=== PATIENT | female | born 1965 | race Caucasian/White ===

== ENCOUNTER → 2016-12-28 | Outpatient (CLI) | payer BC ==
[~2016-12-28] MED LIST: AMT25 PO; FRC PO; IBUP-1050 PO; KETO10TA PO; MULT-506 PO; RIZA10TA18 PO; TOPI200T14 PO; TRIA0.1C20; XNX25 PO
--- NOTE | 2016-12-28 14:50 | DIAGNOSTIC IMAGING REPORT ---
MRI LUMBAR SPINE W/O CONTRAST CLINICAL HISTORY: Low back pain and left leg radiculopathy. TECHNIQUE: Sagittal and axial T1, T2 and STIR images were obtained. COMPARISON STUDY: No previous studies for comparison. OBSERVATIONS: There is a small focal fatty rest/hemangioma the L1 level. There are no areas of marrow replacement viewed as suspicious for metastatic disease. L1-2: No disc protrusions or extrusions. No evidence of spinal canal or neural foraminal compromise. L2-3: No disc protrusions or extrusions. No evidence of spinal canal or neural foraminal compromise. L3-4: No disc protrusions or extrusions. No evidence of spinal canal or neural foraminal compromise. L4-5: There is a tiny right paracentral disc protrusion. There is minimal deformity of thecal sac. There is no foraminal narrowing L5-S1: There is a tiny broad-based central disc protrusion. There is no significant spinal or foraminal stenosis. There is facet joint arthropathy. There is a subcentimeter fluid collection posterior medial to the left facet. There is suspected right-sided L5 spondylolysis. The conus medullaris and cauda equina appear normal. IMPRESSION: 1. Suspected L5 spondylolysis 2. Tiny right paracentral disc protrusions the L4-5 level. 3. Tiny broad-based central disc protrusion at the L5-S1 level. Electronically signed by: Vel Marie M.D. 12/28/2016 2:49 PM Dictated Date/Time: 12/28/2016 2:44 PM
--- NOTE | 2016-12-28 15:31 | DIAGNOSTIC IMAGING REPORT ---
MRI OF THE CERVICAL SPINE WITHOUT IV CONTRAST CLINICAL HISTORY: Cervical radiculopathy. COMPARISON STUDY: MRI of the cervical spine dated 10/08/2015. TECHNIQUE: MRI of the cervical spine is performed utilizing various T1 and T2-weighted sequences in the axial and sagittal planes. IV contrast was not administered for this examination. FINDINGS: Cervical spine: Vertebral body height and alignment are maintained throughout the cervical spine. Normal marrow signal intensity is preserved throughout the visualized bony structures. The atlantodental articulation appears maintained. The spinous processes are intact. Intervertebral discs: There is minimal degenerative disc desiccation. The disc spaces are preserved. Cervical spine: The cervical spinal cord is normal in morphology and signal intensity. C2-C3: Unremarkable. C3-C4: A small posterior disc osteophytic complex effaces the ventral subarachnoid space. The neural foramina appear clear. C4-C5: Mild facet arthropathy is of no consequence. The central canal and neural foramina are widely patent. C5-C6: A posterior disc osteophyte complex effaces the ventral subarachnoid space. Prominent facet arthropathy causes mild left greater than right neural foraminal stenosis. C6-C7: A tiny posterior disc osteophyte complex is of no consequence. The neural foramina are widely patent. C7-T1: Unremarkable. Soft tissues: The prevertebral and paraspinous soft tissues are within normal limits. Brain parenchyma: Partially imaged brain parenchyma at the skull base is within normal limits. IMPRESSION: 1. Minimal spondylotic change as above. There is no disc herniation or central canal stenosis, and there has been no significant change from 10/08/2015. 2. The cervical spinal cord is normal in morphology and signal intensity. Dictated: 12/28/2016 3:22 PM Transcribed: 12/28/2016 3:31 PM Leidy Electronically signed by: Kevin Brar M.D. 12/28/2016 3:35 PM Dictated Date/Time: 12/28/2016 3:22 PM
== END | disposition home or self-care (01) ==
LOC: C.MRI 13:43
PROVIDERS: ATTEND Psychiatry & Neurology Neurology
DX: M54.12 Radiculopathy, cervical region (principal); M54.16 Radiculopathy, lumbar region

== ENCOUNTER 2025-03-30 19:26 | Inpatient (IN) ==
[2025-03-30 19:47] LABS: Hematocrit (blood only) 43.4 % (37.0-47.0); Hemoglobin 15.3 g/dl (12.0-16.0); Mean Corpuscular Hemoglobin 32.3 pg (25.0-34.0); Mean Corpuscular Volume 91.6 fL (80.0-100.0); Platelet Count 372 K/uL (130-400); RDW Standard Deviation 40.6 fL (36.4-46.3); Red Blood Count 4.74 M/uL (4.20-5.40); White Blood Count 24.02 K/ul (4.8-10.8)
[2025-03-30 20:02] LABS: Pregnancy Test, Serum Negative (Negative)
[2025-03-30 20:04] LABS: Immature Granulocytes # (auto) 0.12 K/uL (0.01-0.20); Immature Granulocytes % (auto) 0.5 %
[2025-03-30 20:05] LABS: Alanine Aminotransferase 18.0 U/L (7-52); Albumin Globulin Ratio 1.6 (0.9-2); Alkaline Phosphatase 93.0 U/L (34-104); Anion Gap 13.0 (3-11); Bilirubin,Total 0.5 mg/dl (0.2-1.0); Blood Urea Nitrogen 15.0 mg/dl (6-23); Calcium 10.0 mg/dl (8.6-10.3); Carbon Dioxide 25.0 mmol/L (21-32); Chloride 97.0 mmol/L (98-107); Creatinine Clr Calc Pharmacy 70.5 ml/min; Globulin 3.2 gm/dl (2.5-4.0); Glucose 154.0 mg/dl (70-99(Fasting)); Lipase 13.0 U/L (11-82); Potassium 4.5 mmol/L (3.5-5.1); Sodium 135.0 mmol/L (136-145); Total Protein 8.4 gm/dl (6.0-8.3)
[2025-03-30 20:15] LABS: Appearance Urine Clear (Clear); Bacteria Urine Automated None Seen (None Seen); Epithelial Cell Urine Auto 0-2 /hpf (0-2); Glucose Urine UA 1+ (Negative); WBC Urine Automated 0-5 /hpf (0-5)
[2025-03-30] MEDS: SODIUM CHLORIDE 0.9% 1,000 ML IV ONE ×2 (20:25→22:19)
[2025-03-30] MEDS: ONDANSETRON INJ 2 MG/ML 2 ML VIAL IV STA (20:25)
--- NOTE | 2025-03-30 20:33 | Emergency Department Note ---
Impression & Plan Nausea, vomiting, and diarrhea, Acute dehydration, Leukocytosis, Elevated lactic acid level, SIRS (systemic inflammatory response syndrome) ED Provider Note HISTORY OF PRESENT ILLNESS: Patient is a 60-year-old female presenting with vomiting. Patient reports that yesterday she had multiple episodes of diarrhea. She states that her diarrhea stopped today, but she woke up this morning at 7 AM and started vomiting. Reports multiple episodes of vomiting. She does report some reflux-like pain in her epigastric region. Reports an abdominal surgical history significant for a cholecystectomy. Denies any fevers. Denies any recent sick contact exposures. Reports that she has vomited throughout the day today and has been unable to tolerate oral intake. Denies any dysuria or hematuria. Denies any chest pain or shortness of breath. ROS: as above PHYSICAL EXAM: Constitutional: Patient appears in no acute distress. HENT: Head: Normocephalic and atraumatic. Eyes: EOMI, PERRL Mouth/Throat: Mucous membranes moist. Neck: Trachea midline. Neck supple. Cardiovascular: RRR, No murmurs, rubs or gallops. Intact distal pulses. Pulmonary/Chest: No respiratory distress. Breath sounds clear and equal bilaterally. No wheezes or rales. Abdominal: Abdomen soft, no tenderness, rebound or guarding. No reproducible abdominal pain Musculoskeletal: No edema, tenderness or deformity noted. Skin: Warm and dry. No rash, erythema, pallor or cyanosis Psychiatric: Appropriate mood and affect for situation. Neurological: Alert and keenly responsive. CN II-XII grossly intact, moving all extremities equally and fully. MDM: - Vitals signs showed hypertension - History obtained via patient. History as above. - Chronic conditions affecting care: HLD; depression/anxiety - Differential diagnoses include, but are not limited to: dehydration; electrolyte abnormality; choledocholithiasis; appendicitis; bowel obstruction; colitis - Order placed for continuous cardiac monitoring. At this time, monitor showed rate of 86 bpm with normal sinus rhythm, per my interpretation. - External medical records reviewed. Rheumatology visit note dated 02/24/2025 was reviewed. Patient follows in the clinic secondary to a positive JAKE and is having further workup for this. - Laboratory workup interpreted by myself showed leukocytosis (WBC 24.02) with neutrophil predominant slight hyponatremia (Na 135); elevated anion gap (13) with elevated glucose (154); normal AST/ALT normal lipase; negative hCG - Elevated lactate (3.2) - UA negative for infection. Noted to have trace ketones and blood. - Patient given 1L NS and 4 mg IV zofran. However, patient complaining of discomfort and further nausea while awaiting CT scan. Given 5 mg IV compazine and 50 mcg IV fentanyl. Given 20 mg IV pepcid. - CT abdomen/pelvis with IV contrast negative for acute pathology. No findings to suggest acute appendicitis. Noted to have postop changes from a prior cholecystectomy but no ductal dilatation. - On reassessment, patient reports feeling significantly improved. She was given a second liter normal saline for elevated lactic acid level. I did discuss with the patient that I thought that her leukocytosis was likely reactive and her elevated lactic acid level was secondary to her dehydration from her vomiting and diarrhea. She was agreeable to a repeat lactic acid after second liter of fluid. However, repeat lactic acid level still elevated at 3.5. Procalcitonin and blood cultures were added the patient's workup. - Patient's sepsis fluid volume calculation based on actual body weight is 1773.00 mL. - Lyme, Anaplasmosis and babesia also added to workup. - Discussion was had with case coordinator about patient's case and need for admission - Hospitalist, Dr. Hamilton, consulted for admission - Patient admitted to [facility] service for further evaluation and management. ASSESSMENT AND PLAN: Diagnosis: nausea, vomiting and diarrhea; elevated lactic acid level; leukocytosis; SIRS Plan: admit Past Med/Surg History Problem List (Updated 03/30/25 @ 23:16 by Alicia Zeng MD) SIRS (systemic inflammatory response syndrome) (Acute) Elevated lactic acid level (Acute) Leukocytosis (Acute) Acute dehydration (Acute) Nausea, vomiting, and diarrhea (Acute) Anxiety Migraine with aura Positive JAKE (antinuclear antibody) Neck pain (Chronic) Left-sided trigeminal neuralgia (Chronic) Left lumbar radiculopathy (Chronic) Hyperlipidemia with target LDL less than 100 (Chronic) Depression with anxiety (Chronic) Cervical radiculopathy (Chronic) Carpal tunnel syndrome of right wrist (Chronic) 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) Arthralgia of multiple sites (Chronic) Chronic pain (Acute) Vision abnormalities Lower back pain Bilateral lumbar radiculopathy Bursitis Gluteus minimus/medius Bilateral piriformis syndrome Sacroiliac joint pain Cervical facet joint syndrome Medical History (Updated 03/30/25 @ 23:16 by Alicia Zeng MD) Hyperlipidemia Surgical History (Updated 05/30/24 @ 08:16 by Adams Fontaine DO) Deviated septum Hx of tonsillectomy S/P cervical spinal fusion C2-C3 H/O: hysterectomy S/P shoulder surgery S/P cholecystectomy Family History Son Diabetes Family/Other Diabetes Cancer Grandmother Cancer Father Hypertension Daughter Migraine headache Other Gallbladder disease Social History (Updated 05/30/24 @ 08:16 by Adams Fontaine DO) Smoking Status: Never smoker Hx Alcohol Use: Yes (Rare) Alcohol type: wine Hx Substance Use: Yes Prescribed Medications: Marijuana Preferred Language: Yoruba Communication Ability: Effective Visual Impairment: No Limitations Hearing Ability: Normal Beliefs That Will Affect Care: None marital status: Current Living Situation: Spouse and Family current occupational status: employed current occupation: owns a [employer] company Feels Safe at Home: Yes Allergies Allergies Allergy/AdvReac Type Severity Reaction Status Date / Time Penicillins Allergy Mild Rash/hives/throat Verified 03/30/25 20:08 swelling latex Allergy Unknown SCABS, Verified 03/30/25 20:08 ITCHY, SORE walnut Allergy swelling Verified 03/30/25 20:08 in throat baclofen AdvReac Severe Confusion Verified 03/30/25 20:08 bacitracin AdvReac Intermediate blisters Verified 03/30/25 20:08 onabotulinumtoxinA AdvReac muscle Verified 03/30/25 20:08 [From Botox] tightness in neck COVALT Allergy Unknown . Uncoded 03/30/25 20:08 Home Meds Home Medications Medication Instructions Recorded Confirmed acyclovir 5 % topical ointment 1 applic topical DIRECTED 07/04/18 03/30/25 valacyclovir 500 mg tablet 500 mg PO TID PRN Recurrent Episode 07/04/18 03/30/25 (Valtrex) acetaminophen 650 mg 650 mg PO Q8H PRN Pain 02/08/22 03/30/25 tablet,extended release (Tylenol Arthritis Pain) docusate sodium 100 mg capsule 100 mg PO BID 02/08/22 03/30/25 (Colace) furosemide 40 mg tablet (Lasix) 40 mg PO DAILY PRN swelling 05/30/24 03/30/25 ondansetron HCl 4 mg tablet 4 mg PO Q8H PRN Nausea 05/30/24 03/30/25 rosuvastatin 10 mg tablet 10 mg PO DAILY 05/30/24 03/30/25 albuterol sulfate 90 mcg/actuation 1 puff inhalation Q4H PRN 03/30/25 03/30/25 aerosol inhaler Shortness Of Breath Or Wheezing duloxetine 60 mg capsule,delayed 60 mg PO QAM 03/30/25 03/30/25 release (Cymbalta) famotidine 20 mg tablet 20 mg PO DAILY 03/30/25 03/30/25 fluticasone propionate 50 1 spray intranasal DAILY 03/30/25 03/30/25 mcg/actuation nasal spray,suspension omeprazole 40 mg capsule,delayed 40 mg PO QAM 03/30/25 03/30/25 release Previous Rx's Medication Instructions Recorded indomethacin 75 mg 75 mg PO BID 90 days #180 caps 05/01/24 capsule,extended release alprazolam 0.5 mg tablet 0.5 mg PO DAILY PRN anxiety #90 07/01/24 tabs ketorolac 10 mg tablet 10 mg PO DAILY PRN Pain 30 days 07/01/24 #12 tabs ondansetron 4 mg disintegrating 4 mg PO Q6H PRN nausea and 03/30/25 tablet vomiting #14 tabs Results & Data (ED) Vital Signs Vital Signs - 24 hr 03/30/25 19:29 03/30/25 21:07 03/30/25 21:31 Temperature 36.7 C Temperature Source Oral Pulse Rate 83 67 Pulse Rate [Apical] 86 Respiratory Rate 16 17 Respiratory Effort / Characteristics Non-Labored Spontaneous Non-Labored Spontaneous Respiratory Depth Normal Normal Respiratory Pattern Regular Regular Blood Pressure 167/85 H Blood Pressure [Left Arm] 146/99 H Blood Pressure Mean 112 Blood Pressure Mean [Left Arm] 114 Pulse Oximetry 98 98 Oxygen Delivery Method Room Air Room Air Sepsis Recent Fever Within 48 Hours No Sepsis New/Unexplained Change in Mental Status N/A Sepsis Action Taken by Nursing No Action Required 03/30/25 23:00 Temperature Temperature Source Pulse Rate Pulse Rate [Apical] Respiratory Rate Respiratory Effort / Characteristics Non-Labored Respiratory Depth Normal Respiratory Pattern Blood Pressure Blood Pressure [Left Arm] Blood Pressure Mean Blood Pressure Mean [Left Arm] Pulse Oximetry Oxygen Delivery Method Sepsis Recent Fever Within 48 Hours Sepsis New/Unexplained Change in Mental Status Sepsis Action Taken by Nursing Laboratory Data 03/30/25 19:33 03/30/25 19:33 Lab Results 03/30/25 03/30/25 03/30/25 Range/Units 19:33 20:03 21:21 WBC 24.02 H (4.8-10.8) K/ul RBC 4.74 (4.20-5.40) M/uL Hgb 15.3 (12.0-16.0) g/dl Hct 43.4 (37.0-47.0) % MCV 91.6 (80.0-100.0) fL MCH 32.3 (25.0-34.0) pg MCHC 35.3 (32.0-36.0) g/dL RDW Std Deviation 40.6 (36.4-46.3) fL RDW Coeff of Ray 12.2 (11.5-14.5) % Plt Count 372 (130-400) K/uL MPV 8.7 L (9.4-12.4) fL Immature Gran % (Auto) 0.5 % Neut % (Auto) 88.9 % Lymph % (Auto) 5.0 % [place] % (Auto) 5.4 % Eos % (Auto) 0.0 % Baso % (Auto) 0.2 % Neut # (Auto) 21.36 H (1.40-6.50) K/uL Lymph # (Auto) 1.21 (1.20-3.40) K/uL [place] # (Auto) 1.29 H (0.11-0.59) K/uL Eos # (Auto) 0.00 (0.00-0.50) K/uL Baso # (Auto) 0.04 (0.00-0.20) K/uL Immature Gran # (Auto) 0.12 (0.01-0.20) K/uL Sodium 135 L (136-145) mmol/L Potassium 4.5 (3.5-5.1) mmol/L Chloride 97 L (98-107) mmol/L Carbon Dioxide 25 (21-32) mmol/L Anion Gap 13 H (3-11) BUN 15 (6-23) mg/dl Creatinine 0.72 (0.6-1.2) mg/dl Est Cr Clr Drug Dosing 70.5 ml/min eGFR 96.86 BUN/Creatinine Ratio 20.8 H (10-20) Glucose 154 H (70-99(Fasting)) mg/dl Lactate 3.2 H* (0.4-2.0) mmol/L Calcium 10.0 (8.6-10.3) mg/dl Total Bilirubin 0.5 (0.2-1.0) mg/dl AST 35 (13-39) U/L ALT 18 (7-52) U/L Alkaline Phosphatase 93 (34-104) U/L Total Protein 8.4 H (6.0-8.3) gm/dl Albumin 5.2 H (3.4-5.0) gm/dl Globulin 3.2 (2.5-4.0) gm/dl Albumin/Globulin Ratio 1.6 (0.9-2) Lipase 13 (11-82) U/L HCG, Qual Negative (Negative) Urine Color Yellow Urine Appearance Clear (Clear) Urine pH 7.0 (4.5-7.5) Ur Specific [place] 1.026 (1.000-1.030) Urine Protein 4+ H (Negative) Urine Glucose (UA) 1+ H (Negative) Urine Ketones Trace H (Negative) Urine Blood 2+ H (Negative) Urine Nitrite Negative (Negative) Urine Bilirubin Negative (Negative) Urine Urobilinogen Negative (Negative) Ur Leukocyte Esterase Negative (Negative) Urine WBC (Auto) 0-5 (0-5) /hpf Urine RBC (Auto) 11-20 H (0-2) /hpf U Hyaline Cast (Auto) 3-5 H (0-2) /lpf U Epithel Cells (Auto) 0-2 (0-2) /hpf Urine Bacteria (Auto) None Seen (None Seen) Urine Comment 03/30/ Range/Units 22:45 WBC (4.8-10.8) K/ul RBC (4.20-5.40) M/uL Hgb (12.0-16.0) g/dl Hct (37.0-47.0) % MCV (80.0-100.0) fL MCH (25.0-34.0) pg MCHC (32.0-36.0) g/dL RDW Std Deviation (36.4-46.3) fL RDW Coeff of Ray (11.5-14.5) % Plt Count (130-400) K/uL MPV (9.4-12.4) fL Immature Gran % (Auto) % Neut % (Auto) % Lymph % (Auto) % [place] % (Auto) % Eos % (Auto) % Baso % (Auto) % Neut # (Auto) (1.40-6.50) K/uL Lymph # (Auto) (1.20-3.40) K/uL [place] # (Auto) (0.11-0.59) K/uL Eos # (Auto) (0.00-0.50) K/uL Baso # (Auto) (0.00-0.20) K/uL Immature Gran # (Auto) (0.01-0.20) K/uL Sodium (136-145) mmol/L Potassium (3.5-5.1) mmol/L Chloride (98-107) mmol/L Carbon Dioxide (21-32) mmol/L Anion Gap (3-11) BUN (6-23) mg/dl Creatinine (0.6-1.2) mg/dl Est Cr Clr Drug Dosing ml/min eGFR BUN/Creatinine Ratio (10-20) Glucose (70-99(Fasting)) mg/dl Lactate 3.5 H* (0.4-2.0) mmol/L Calcium (8.6-10.3) mg/dl Total Bilirubin (0.2-1.0) mg/dl AST (13-39) U/L ALT (7-52) U/L Alkaline Phosphatase (34-104) U/L Total Protein (6.0-8.3) gm/dl Albumin (3.4-5.0) gm/dl Globulin (2.5-4.0) gm/dl Albumin/Globulin Ratio (0.9-2) Lipase (11-82) U/L HCG, Qual (Negative) Urine Color Urine Appearance (Clear) Urine pH (4.5-7.5) Ur Specific [place] (1.000-1.030) Urine Protein (Negative) Urine Glucose (UA) (Negative) Urine Ketones (Negative) Urine Blood (Negative) Urine Nitrite (Negative) Urine Bilirubin (Negative) Urine Urobilinogen (Negative) Ur Leukocyte Esterase (Negative) Urine WBC (Auto) (0-5) /hpf Urine RBC (Auto) (0-2) /hpf U Hyaline Cast (Auto) (0-2) /lpf U Epithel Cells (Auto) (0-2) /hpf Urine Bacteria (Auto) (None Seen) Urine Comment Administered Medications Discontinued Medications Fentanyl Citrate (Fentanyl Citrate Pf 100 Mcg/2 Ml Vial) 50 mcg IV NOW STA Stop: 03/30/25 20:44 Last Admin: 03/30/25 20:57 Dose: 50 mcg Documented By: LAURA Sodium Chloride (Nss) 1,000 mls @ 999 mls/hr IV .Q1H1M ONE Stop: 03/30/25 21:22 Last Infusion: 03/30/25 21:33 Dose: Infused Documented By: Admin: 03/30/25 20:25 Dose: 999 mls/hr Documented By: LAURA Prochlorperazine (Compazine) 1 mls @ 1 mls/min IV ONE ONE Stop: 03/30/25 20:44 Last Admin: 03/30/25 20:56 Dose: 1 mls/min Documented By: LAURA Famotidine (Pepcid 20mg Iv Push) 20 mg in 5 mls @ 2.5 mls/min IV NOW STA Stop: 03/30/25 21:33 Last Admin: 03/30/25 21:46 Dose: 2.5 mls/min Documented By: LAURA Sodium Chloride (Nss) 1,000 mls @ 999 mls/hr IV .Q1H1M ONE Stop: 03/30/25 23:01 Last Admin: 03/30/25 22:19 Dose: 999 mls/hr Documented By: LAURA Ioversol (Optiray 320 100ml) 90 ml IV ONCE ONE Stop: 03/30/25 20:39 Last Admin: 03/30/25 20:39 Dose: 90 ml Documented By: ALFONZO Ondansetron HCl (Ondansetron Inj 2 Mg/Ml 2 Ml Vial) 4 mg IV NOW STA Stop: 03/30/25 20:23 Last Admin: 03/30/25 20:25 Dose: 4 mg Documented By: LAURA Imaging Data Radiologist's Impression: Abdomen/Pelvis CT 03/30/25 20:22 Exam(s): CT ABDOMEN + PELVIS With Contrast IV Amt: 90 ml optiray 320 EXAM: CT Abdomen and Pelvis With Intravenous Contrast CLINICAL HISTORY: Reason for exam: vomiting; diarrhea. TECHNIQUE: Axial computed tomography images of the abdomen and pelvis with intravenous contrast. CTDI is 21.04 mGy and DLP is 942.39 mGy-cm. Automated exposure control was utilized for the study. A dose lowering technique was utilized adhering to the principles of ALARA. CONTRAST: Patient received 90 ml optiray 320 of IV contrast COMPARISON: 07/18/2020 FINDINGS: Lung bases: Unremarkable. No mass. No consolidation. ABDOMEN: Liver: Unremarkable. No mass. Gallbladder and bile ducts: Postop changes prior cholecystectomy. No ductal dilation. Pancreas: Unremarkable. No mass. No ductal dilation. Spleen: Unremarkable. No splenomegaly. Adrenals: Unremarkable. No mass. Kidneys and ureters: Both kidneys opacify within excrete contrast in a normal symmetric fashion. Simple bilateral parapelvic renal cysts. No follow-up of these simple cysts is necessary. No hydronephrosis. Stomach and bowel: Unremarkable. No obstruction. No mucosal thickening. PELVIS: Appendix: No findings to suggest acute appendicitis. Bladder: Unremarkable. No mass. Reproductive: Unremarkable as visualized. ABDOMEN and PELVIS: Intraperitoneal space: Unremarkable. No free air. No significant fluid collection. Bones/joints: No acute fracture. No dislocation. Soft tissues: Unremarkable. Vasculature: Unremarkable. No abdominal aortic aneurysm. Lymph nodes: Unremarkable. No enlarged lymph nodes. IMPRESSION: Postop changes prior cholecystectomy Stable bilateral parapelvic renal cysts Electronically signed by: Ton Wilkins MD 03/30/25 21:37 PM Discharge Plan Visit Data Chief Complaint: Vomiting Stated Complaint: THROWING UP/CRAMPING ED Provider: Alicia Zeng Discharge Problem: Nausea, vomiting, and diarrhea, Acute dehydration, Leukocytosis, Elevated lactic acid level, SIRS (systemic inflammatory response syndrome) Condition: Fair Discharge Instructions Krames/Other Patient Handouts: ED Vomiting (Adult) Activity Restrictions/Additional Instructions: Your laboratory workup in the emergency department showed that she had an elevated white blood cell count, which can be indicative of an infection or an inflammatory process. Your CT scan did not show any evidence of infection. You had an elevated lactic acid level, which again can be indicative of infection or inflammation. It is extremely important that if you develop persistent vomiting or diarrhea, confusion, fever, chest pain, shortness of breath or abdominal pain, you present back to the emergency department for reassessment. Recommend staying well-hydrated for the next few days and slowly advancing your diet as tolerated. Please follow-up closely with your primary care provider for reassessment in the next 3 to 5 days. You can take the provided Zofran for any further nausea you may have. Forms Stand Alone Forms: [facility] Prescriptions Prescriptions: New ondansetron 4 mg tablet,disintegrating 4 mg PO Q6H PRN (Reason: nausea and vomiting) Qty: 14 0RF No Action acetaminophen [Tylenol Arthritis Pain] 650 mg tablet extended release 650 mg PO Q8H PRN (Reason: Pain) docusate sodium [Colace] 100 mg capsule 100 mg PO BID indomethacin 75 mg capsule, extended release 75 mg PO BID 90 Days Qty: 180 4RF alprazolam 0.5 mg tablet 0.5 mg PO DAILY PRN (Reason: anxiety) Qty: 90 1RF ketorolac 10 mg tablet 10 mg PO DAILY PRN (Reason: Pain) 30 Days Qty: 12 5RF Hold Instructions: on indomethacin rosuvastatin 10 mg tablet 10 mg PO DAILY furosemide [Lasix] 40 mg tablet 40 mg PO DAILY PRN (Reason: swelling) ondansetron HCl 4 mg tablet 4 mg PO Q8H PRN (Reason: Nausea) valacyclovir [Valtrex] 500 mg Tablet 500 mg PO TID PRN (Reason: Recurrent Episode) acyclovir 5 % Ointment 1 applic Topical DIRECTED omeprazole 40 mg capsule,delayed release(DR/EC) 40 mg PO QAM famotidine 20 mg tablet 20 mg PO DAILY albuterol sulfate 90 mcg/actuation HFA aerosol inhaler 1 puff INHALATION Q4H PRN (Reason: Shortness Of Breath Or Wheezing) fluticasone propionate 50 mcg/actuation spray,suspension 1 spray INTRANASAL DAILY duloxetine [Cymbalta] 60 mg capsule,delayed release(DR/EC) 60 mg PO QAM Referrals Referrals: Keli Stahl PA-C [Primary Care Provider] -
[2025-03-30] MEDS: OPTIRAY 320 100ml IV ONE (20:39)
[2025-03-30] MEDS: PROCHLORPERAZINE 1 ML IV ONE (20:56)
--- NOTE | 2025-03-30 21:37 | CT Scan Report ---
Exam(s): CT ABDOMEN + PELVIS With Contrast IV Amt: 90 ml optiray 320 EXAM: CT Abdomen and Pelvis With Intravenous Contrast CLINICAL HISTORY: Reason for exam: vomiting; diarrhea. TECHNIQUE: Axial computed tomography images of the abdomen and pelvis with intravenous contrast. CTDI is 21.04 mGy and DLP is 942.39 mGy-cm. Automated exposure control was utilized for the study. A dose lowering technique was utilized adhering to the principles of ALARA. CONTRAST: Patient received 90 ml optiray 320 of IV contrast COMPARISON: 07/18/2020 FINDINGS: Lung bases: Unremarkable. No mass. No consolidation. ABDOMEN: Liver: Unremarkable. No mass. Gallbladder and bile ducts: Postop changes prior cholecystectomy. No ductal dilation. Pancreas: Unremarkable. No mass. No ductal dilation. Spleen: Unremarkable. No splenomegaly. Adrenals: Unremarkable. No mass. Kidneys and ureters: Both kidneys opacify within excrete contrast in a normal symmetric fashion. Simple bilateral parapelvic renal cysts. No follow-up of these simple cysts is necessary. No hydronephrosis. Stomach and bowel: Unremarkable. No obstruction. No mucosal thickening. PELVIS: Appendix: No findings to suggest acute appendicitis. Bladder: Unremarkable. No mass. Reproductive: Unremarkable as visualized. ABDOMEN and PELVIS: Intraperitoneal space: Unremarkable. No free air. No significant fluid collection. Bones/joints: No acute fracture. No dislocation. Soft tissues: Unremarkable. Vasculature: Unremarkable. No abdominal aortic aneurysm. Lymph nodes: Unremarkable. No enlarged lymph nodes. IMPRESSION: Postop changes prior cholecystectomy Stable bilateral parapelvic renal cysts Electronically signed by: Ton Wilkins MD 03/30/25 21:37 PM
[2025-03-30] MEDS: FAMOTIDINE 20MG IV PUSH 20 MG/5 ML SYR IV STA (21:46)
[2025-03-30] MEDS: ONDANSETRON HOME PACK 4MG OD TAB PO ONE (23:54)
[2025-03-31] MEDS: SODIUM CHLORIDE 0.9% 1,000 ML IV SCH ×2 (01:38→09:58)
[2025-03-31] MEDS: SODIUM CHLORIDE 0.9% 500 ML IV ONE (01:38)
[2025-03-31] MEDS: LORazepam 0.5 MG TAB SL STA (01:38)
--- NOTE | 2025-03-31 01:45 | History & Physical Report ---
Date of Service March 31, 2025 Assessment & Plan (1) Elevated lactic acid level: Plan: 60-year-old female with past medical history significant for dyslipidemia, female stress incontinence, history of myalgia and myositis, migraines, trigeminal neuralgia, coccydynia, anxiety state, history of squamous cell carcinoma in situ, medical marijuana use and on indomethacin for about a year for headaches follows with neurology and positive JAKE and following with rheum atology comes because of nausea, vomiting and diarrhea. Patient says the day before she was feeling weak and tired and slept a lot and in the nighttime she started develop diarrhea several episodes and since yesterday morning she is having a lot of nausea with vomiting multiple times and also epigastric abdominal pain and came to the ER. Denies any blood in the vomitus or blood in the stools or any black stools. Denies any fevers. No headache. No dizziness. Vision is okay. No runny nose or sore throat. No cough. No chest pain. No shortness of breath. No rash. Hemodynamics are okay. Elevated lactic acid level and leukocytosis Initial level is 3.2 repeat is 3.5 and again repeat is 3.2 Received liter of fluid in the ER CT abdomen pelvis with IV contrast no acute findings. UA is okay Having nausea vomiting and diarrhea and epigastric pain Will follow stool studies Antiemetics as needed Empiric IV Cipro and Flagyl and fluids iv ppi Will follow blood cultures Follow repeat labs If not improving will consult GI Close monitor Headaches Arthritis Holding the indomethacin IV Tylenol as needed for now Fibromyalgia On Cymbalta GERD Currently placed on IV Protonix Hold omeprazole Hyperlipidemia On statin Anxiety On Ativan as needed Positive JAKE Following with rheumatology DVT prophylaxis Lovenox Disposition Telemetry Full code. History of Present Illness Chief Complaint: Nausea vomiting and diarrhea Primary Care Provider: Keli Stahl PA-C 60-year-old female with past medical history significant for dyslipidemia, female stress incontinence, history of myalgia and myositis, migraines, trigeminal neuralgia, coccydynia, anxiety state, history of squamous cell carcinoma in situ, medical marijuana use and on indomethacin for about a year for headaches follows with neurology and positive JAKE and following with rheumatology comes because of nausea, vomiting and diarrhea. Patient says the day before she was feeling weak and tired and slept a lot and in the nighttime she started develop diarrhea several episodes and since yesterday morning she is having a lot of nausea with vomiting multiple times and also epigastric abdominal pain and came to the ER. Denies any blood in the vomitus or blood in the stools or any black stools. Denies any fevers. No headache. No dizziness. Vision is okay. No runny nose or sore throat. No cough. No chest pain. No shortness of breath. No rash. Hemodynamics are okay. Past medical history. As mentioned above Past surgical history. . Colonoscopy, EGD. Nasal polypectomy. Laser surgery of cervix. Ligation of oviducts. Neck spine fusion surgery. Tonsillectomy and adenoidectomy. Vaginal hysterectomy. Social history. . CBD vape pen. Alcohol occasional. Medical marijuana. Family history. Paternal aunt had multiple myeloma. Maternal aunt had breast cancer at age 42. Maternal grandmother had colon cancer at age of 40. Son has type 1 diabetes. Mother has hypertension. Father has hypertension. Allergies Allergy/AdvReac Type Severity Reaction Status Date / Time Penicillins Allergy Mild Rash/hives/throat Verified 03/30/25 20:08 swelling latex Allergy Unknown SCABS, Verified 03/30/25 20:08 ITCHY, SORE walnut Allergy swelling Verified 03/30/25 20:08 in throat baclofen AdvReac Severe Confusion Verified 03/30/25 20:08 bacitracin AdvReac Intermediate blisters Verified 03/30/25 20:08 onabotulinumtoxinA AdvReac muscle Verified 03/30/25 20:08 [From Botox] tightness in neck COVALT Allergy Unknown . Uncoded 03/30/25 20:08 Home Medications Medication Instructions Recorded Confirmed Type acyclovir 5 % topical ointment 1 applic topical DIRECTED 07/04/18 03/30/25 History valacyclovir 500 mg tablet 500 mg PO TID PRN Recurrent Episode 07/04/18 03/30/25 History (Valtrex) acetaminophen 650 mg 650 mg PO Q8H PRN Pain 02/08/22 03/30/25 History tablet,extended release (Tylenol Arthritis Pain) docusate sodium 100 mg capsule 100 mg PO BID 02/08/22 03/30/25 History (Colace) indomethacin 75 mg 75 mg PO BID 90 days #180 caps 05/01/24 03/30/25 Rx capsule,extended release furosemide 40 mg tablet (Lasix) 40 mg PO DAILY PRN swelling 05/30/24 03/30/25 History ondansetron HCl 4 mg tablet 4 mg PO Q8H PRN Nausea 05/30/24 03/30/25 History rosuvastatin 10 mg tablet 10 mg PO DAILY 05/30/24 03/30/25 History alprazolam 0.5 mg tablet 0.5 mg PO DAILY PRN anxiety #90 07/01/24 03/30/25 Rx tabs ketorolac 10 mg tablet 10 mg PO DAILY PRN Pain 30 days 07/01/24 03/30/25 Rx #12 tabs albuterol sulfate 90 mcg/actuation 1 puff inhalation Q4H PRN 03/30/25 03/30/25 History aerosol inhaler Shortness Of Breath Or Wheezing duloxetine 60 mg capsule,delayed 60 mg PO QAM 03/30/25 03/30/25 History release (Cymbalta) famotidine 20 mg tablet 20 mg PO DAILY 03/30/25 03/30/25 History fluticasone propionate 50 1 spray intranasal DAILY 03/30/25 03/30/25 History mcg/actuation nasal spray,suspension omeprazole 40 mg capsule,delayed 40 mg PO QAM 03/30/25 03/30/25 History release ondansetron 4 mg disintegrating 4 mg PO Q6H PRN nausea and 03/30/25 Rx tablet vomiting #14 tabs Past Med/Surg History Problem List (Updated 03/30/25 @ 23:16 by Alicia Zeng MD) SIRS (systemic inflammatory response syndrome) (Acute) Elevated lactic acid level (Acute) Leukocytosis (Acute) Acute dehydration (Acute) Nausea, vomiting, and diarrhea (Acute) Anxiety Migraine with aura Positive JAKE (antinuclear antibody) Neck pain (Chronic) Left-sided trigeminal neuralgia (Chronic) Left lumbar radiculopathy (Chronic) Hyperlipidemia with target LDL less than 100 (Chronic) Depression with anxiety (Chronic) Cervical radiculopathy (Chronic) Carpal tunnel syndrome of right wrist (Chronic) 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) Arthralgia of multiple sites (Chronic) Chronic pain (Acute) Vision abnormalities Lower back pain Bilateral lumbar radiculopathy Bursitis Gluteus minimus/medius Bilateral piriformis syndrome Sacroiliac joint pain Cervical facet joint syndrome Medical History (Updated 03/30/25 @ 23:16 by Alicia Zeng MD) Hyperlipidemia Surgical History (Updated 05/30/24 @ 08:16 by Adams Fontaine DO) Deviated septum Hx of tonsillectomy S/P cervical spinal fusion C2-C3 H/O: hysterectomy S/P shoulder surgery S/P cholecystectomy Family History Son Diabetes Family/Other Diabetes Cancer Grandmother Cancer Father Hypertension Daughter Migraine headache Other Gallbladder disease Social History (Updated 05/30/24 @ 08:16 by Adams Fontaine DO) Smoking Status: Never smoker Hx Alcohol Use: No Hx Substance Use: Yes Prescribed Medications: Marijuana Substance Use Type Other:: MJ edibles, occasionally Preferred Language: Romanian Communication Ability: Effective Visual Impairment: No Limitations Hearing Ability: Normal 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 Beliefs That Will Affect Care: None marital status: Current Living Situation: Spouse Current Living Situation Comment: In home, with , no steps to enter current occupational status: employed current occupation: owns a [employer] Other Information That Helps Us Care for You: No Feels Safe at Home: Yes Safety Concerns: Feels Safe At This Time Assistive Devices: Glasses Assistive Devices Comment: Reading glasses PRN Review of Systems Review of Systems: All systems reviewed & are unremarkable except as noted in HPI & below Physical Exam Physical Exam: General- Not in distress Head- atraumatic Eyes- PERRL. ENT- oropharynx clear Neck- supple, no JVD. Lungs- clear to auscultation no wheezing or crackles Heart- regular rate and rhythm; no murmur, no gallop. Abdomen- normal bowel sounds, soft, epigastric tenderness present, no guarding, no distension Extremities- no pretibial edema, no erythema seen. Neuro- alert, oriented PERRL, no facial palsy; no dysarthria; moves extremities Results & Data Results & Data Vital Signs (Past 12 Hours) Vital Signs Temp Pulse Pulse Resp BP BP Pulse Ox 03/31/25 01:16 98 H 03/30/25 21:31 86 17 146/99 H 98 03/30/25 21:07 67 03/30/25 19:29 36.7 C 83 16 167/85 H 98 O2 Del Method 03/31/25 01:16 03/30/25 21:31 Room Air 03/30/25 21:07 03/30/25 19:29 Room Air Diagnostic Findings Laboratory Results WBC 24.02 K/ul (4.8-10.8) H 03/30/25 19:33 RBC 4.74 M/uL (4.20-5.40) 03/30/25 19:33 Hgb 15.3 g/dl (12.0-16.0) 03/30/25 19:33 Hct 43.4 % (37.0-47.0) 03/30/25 19:33 MCV 91.6 fL (80.0-100.0) 03/30/25 19:33 MCH 32.3 pg (25.0-34.0) 03/30/25 19:33 MCHC 35.3 g/dL (32.0-36.0) 03/30/25 19:33 RDW Std Deviation 40.6 fL (36.4-46.3) 03/30/25 19:33 RDW Coeff of Ray 12.2 % (11.5-14.5) 03/30/25 19:33 Plt Count 372 K/uL (130-400) 03/30/25 19:33 MPV 8.7 fL (9.4-12.4) L 03/30/25 19:33 Immature Gran % (Auto) 0.5 % 03/30/25 19:33 Neut % (Auto) 88.9 % 03/30/25 19:33 Lymph % (Auto) 5.0 % 03/30/25 19:33 [place] % (Auto) 5.4 % 03/30/25 19:33 Eos % (Auto) 0.0 % 03/30/25 19:33 Baso % (Auto) 0.2 % 03/30/25 19:33 Neut # (Auto) 21.36 K/uL (1.40-6.50) H 03/30/25 19:33 Lymph # (Auto) 1.21 K/uL (1.20-3.40) 03/30/25 19:33 [place] # (Auto) 1.29 K/uL (0.11-0.59) H 03/30/25 19:33 Eos # (Auto) 0.00 K/uL (0.00-0.50) 03/30/25 19:33 Baso # (Auto) 0.04 K/uL (0.00-0.20) 03/30/25 19:33 Immature Gran # (Auto) 0.12 K/uL (0.01-0.20) 03/30/25 19:33 Sodium 135 mmol/L (136-145) L 03/30/25 19:33 Potassium 4.5 mmol/L (3.5-5.1) 03/30/25 19:33 Chloride 97 mmol/L (98-107) L 03/30/25 19:33 Carbon Dioxide 25 mmol/L (21-32) 03/30/25 19:33 Anion Gap 13 (3-11) H 03/30/25 19:33 BUN 15 mg/dl (6-23) 03/30/25 19:33 Creatinine 0.72 mg/dl (0.6-1.2) 03/30/25 19:33 Est Cr Clr Drug Dosing 70.5 ml/min 03/30/25 19:33 eGFR 96.86 03/30/25 19:33 BUN/Creatinine Ratio 20.8 (10-20) H 03/30/25 19:33 Glucose 154 mg/dl (70-99(Fasting)) H 03/30/25 19:33 Lactate 3.2 mmol/L (0.4-2.0) H* 03/31/25 01:12 Calcium 10.0 mg/dl (8.6-10.3) 03/30/25 19:33 Total Bilirubin 0.5 mg/dl (0.2-1.0) 03/30/25 19:33 AST 35 U/L (13-39) 03/30/25 19:33 ALT 18 U/L (7-52) 03/30/25 19:33 Alkaline Phosphatase 93 U/L (34-104) 03/30/25 19:33 Total Protein 8.4 gm/dl (6.0-8.3) H 03/30/25 19:33 Albumin 5.2 gm/dl (3.4-5.0) H 03/30/25 19:33 Globulin 3.2 gm/dl (2.5-4.0) 03/30/25 19:33 Albumin/Globulin Ratio 1.6 (0.9-2) 03/30/25 19:33 Lipase 13 U/L (11-82) 03/30/25 19:33 Procalcitonin < 0.02 ng/ml (0-0.5) 03/30/25 19:33 HCG, Qual Negative (Negative) 03/30/25 19:33 Urine Color Yellow 03/30/25 20:03 Urine Appearance Clear (Clear) 03/30/25 20:03 Urine pH 7.0 (4.5-7.5) 03/30/25 20:03 Ur Specific [place] 1.026 (1.000-1.030) 03/30/25 20:03 Urine Protein 4+ (Negative) H 03/30/25 20:03 Urine Glucose (UA) 1+ (Negative) H 03/30/25 20:03 Urine Ketones Trace (Negative) H 03/30/25 20:03 Urine Blood 2+ (Negative) H 03/30/25 20:03 Urine Nitrite Negative (Negative) 03/30/25 20:03 Urine Bilirubin Negative (Negative) 03/30/25 20:03 Urine Urobilinogen Negative (Negative) 03/30/25 20:03 Ur Leukocyte Esterase Negative (Negative) 03/30/25 20:03 Urine WBC (Auto) 0-5 /hpf (0-5) 03/30/25 20:03 Urine RBC (Auto) 11-20 /hpf (0-2) H 03/30/25 20:03 U Hyaline Cast (Auto) 3-5 /lpf (0-2) H 03/30/25 20:03 U Epithel Cells (Auto) 0-2 /hpf (0-2) 03/30/25 20:03 Urine Bacteria (Auto) None Seen (None Seen) 03/30/25 20:03 Urine Comment 03/30/25 20:03 Anaplasma Smear See Comment 03/30/25 23:53 Babesia Smear See Comment 03/30/25 23:53 Impressions Abdomen/Pelvis CT 03/30/25 20:22 Exam(s): CT ABDOMEN + PELVIS With Contrast IV Amt: 90 ml optiray 320 EXAM: CT Abdomen and Pelvis With Intravenous Contrast CLINICAL HISTORY: Reason for exam: vomiting; diarrhea. TECHNIQUE: Axial computed tomography images of the abdomen and pelvis with intravenous contrast. CTDI is 21.04 mGy and DLP is 942.39 mGy-cm. Automated exposure control was utilized for the study. A dose lowering technique was utilized adhering to the principles of ALARA. CONTRAST: Patient received 90 ml optiray 320 of IV contrast COMPARISON: 07/18/2020 FINDINGS: Lung bases: Unremarkable. No mass. No consolidation. ABDOMEN: Liver: Unremarkable. No mass. Gallbladder and bile ducts: Postop changes prior cholecystectomy. No ductal dilation. Pancreas: Unremarkable. No mass. No ductal dilation. Spleen: Unremarkable. No splenomegaly. Adrenals: Unremarkable. No mass. Kidneys and ureters: Both kidneys opacify within excrete contrast in a normal symmetric fashion. Simple bilateral parapelvic renal cysts. No follow-up of these simple cysts is necessary. No hydronephrosis. Stomach and bowel: Unremarkable. No obstruction. No mucosal thickening. PELVIS: Appendix: No findings to suggest acute appendicitis. Bladder: Unremarkable. No mass. Reproductive: Unremarkable as visualized. ABDOMEN and PELVIS: Intraperitoneal space: Unremarkable. No free air. No significant fluid collection. Bones/joints: No acute fracture. No dislocation. Soft tissues: Unremarkable. Vasculature: Unremarkable. No abdominal aortic aneurysm. Lymph nodes: Unremarkable. No enlarged lymph nodes. IMPRESSION: Postop changes prior cholecystectomy Stable bilateral parapelvic renal cysts Electronically signed by: Ton Wilkins MD 03/30/25 21:37 PM Code Status & VTE Plan VTE Prophylaxis Plan VTE Prophylaxis will be ordered: Yes
[2025-03-31] MEDS ORDERED: NITROGLYCERIN SL 0.4 MG/TAB TAB SL PRN (02:17)
[2025-03-31] MEDS ORDERED: ALBUTEROL HFA 8 GM INHALER INH PRN (02:17)
[2025-03-31] MEDS: metroNIDAZOLE 500 MG/100 ML BAG IV SCH (02:43)
[2025-03-31] MEDS: PROMETHAZINE 12.5 MG/50.5 ML BAG IV PRN (03:12)
[2025-03-31] MEDS: CIPROFLOXACIN / D5W 400 MG/200 ML BAG IV SCH (03:12)
[2025-03-31 06:23] LABS: Hematocrit (blood only) 39.7 % (37.0-47.0); Hemoglobin 13.9 g/dl (12.0-16.0); Mean Corpuscular Hemoglobin 32.4 pg (25.0-34.0); Mean Corpuscular Volume 92.5 fL (80.0-100.0); Platelet Count 349 K/uL (130-400); RDW Standard Deviation 42.1 fL (36.4-46.3); Red Blood Count 4.29 M/uL (4.20-5.40); White Blood Count 24.34 K/ul (4.8-10.8)
[2025-03-31 06:40] LABS: Anion Gap 9.0 (3-11); Blood Urea Nitrogen 9.0 mg/dl (6-23); Calcium 8.6 mg/dl (8.6-10.3); Carbon Dioxide 26.0 mmol/L (21-32); Chloride 101.0 mmol/L (98-107); Creatinine Clr Calc Pharmacy 71.4 ml/min; Glucose 143.0 mg/dl (70-99(Fasting)); Magnesium 1.5 mg/dl (1.7-2.4); Potassium 4.0 mmol/L (3.5-5.1); Sodium 136.0 mmol/L (136-145)
[2025-03-31 06:55] LABS: Immature Granulocytes # (auto) 0.17 K/uL (0.01-0.20); Immature Granulocytes % (auto) 0.7 %
[2025-03-31] MEDS: MAGNESIUM SULFATE / D5W 1 GM/100 ML BAG IV SCH (07:52)
--- NOTE | 2025-03-31 07:59 | Communication Note ---
Date of Service: March 31, 2025 seen resting in bed, sitting up comfortable states she feels better than last night nausea/vomiting, diarrhea, abdominal pain resolving she is requesting to have a diet, agreeable to start with clear liquids no chest pain, dyspnea, palpitations, dizziness no headache no fever/chills today PE VS noted and reviewed Normal HR, regular rhythm clear BS BL normoactive bowel sounds, soft, nontender No leg edema a/p> Gastroenteritis Bacterial versus viral with leukocytosis,lactic acidosis CT abdomen pelvis: Unrevealing Stool panel: Pending On empiric ciprofloxacin plus Flagyl Continue IV fluids Trend lactic acid also reported an episode of dark-colored emesis, continue Protonix IV, trend hemoglobin SIRS of non-infectious origin w/o acute organ dysfunction Microscopic hematuria- needs repeat UA other diagnosis and plan of care as per Dr. Hamilton's notes Elier Calix MD
[2025-03-31] MEDS: PANTOprazole 40 MG/10 ML SYR IV SCH (09:19)
[2025-03-31] MEDS: ROSUVASTATIN CALCIUM 10 MG TAB PO SCH (09:19)
[2025-03-31] MEDS: FLUTICASONE PROPIONATE NA SPR 16 GM BTL SCH (09:19)
[2025-03-31] MEDS: ENOXAPARIN INJ 40 MG/0.4 ML SYR SQ SCH (09:25)
[2025-03-31] MEDS: ACETAMINOPHEN 325 MG TAB PO PRN (09:57)
[2025-03-31 13:50] LABS: Anion Gap 9.0 (3-11); Blood Urea Nitrogen 8.0 mg/dl (6-23); Calcium 8.9 mg/dl (8.6-10.3); Carbon Dioxide 25.0 mmol/L (21-32); Chloride 98.0 mmol/L (98-107); Creatinine Clr Calc Pharmacy 68.5 ml/min; Glucose 154.0 mg/dl (70-99(Fasting)); Potassium 3.9 mmol/L (3.5-5.1); Sodium 132.0 mmol/L (136-145)
[2025-03-31 19:11] LABS: Hematocrit (blood only) 40.2 % (37.0-47.0); Hemoglobin 14.3 g/dl (12.0-16.0)
[2025-03-31 19:27] LABS: Anion Gap 11.0 (3-11); Blood Urea Nitrogen 7.0 mg/dl (6-23); Calcium 9.0 mg/dl (8.6-10.3); Carbon Dioxide 23.0 mmol/L (21-32); Chloride 97.0 mmol/L (98-107); Creatinine Clr Calc Pharmacy 76.9 ml/min; Glucose 147.0 mg/dl (70-99(Fasting)); Potassium 3.6 mmol/L (3.5-5.1); Sodium 131.0 mmol/L (136-145)
[2025-04-01 06:20] LABS: Hematocrit (blood only) 41.0 % (37.0-47.0); Hemoglobin 14.9 g/dl (12.0-16.0); Immature Granulocytes # (auto) 0.10 K/uL (0.01-0.20); Immature Granulocytes % (auto) 0.5 %; Mean Corpuscular Hemoglobin 33.0 pg (25.0-34.0); Mean Corpuscular Volume 90.9 fL (80.0-100.0); Platelet Count 349 K/uL (130-400); RDW Standard Deviation 40.7 fL (36.4-46.3); Red Blood Count 4.51 M/uL (4.20-5.40); White Blood Count 19.72 K/ul (4.8-10.8)
[2025-04-01 06:44] LABS: Anion Gap 8.0 (3-11); Blood Urea Nitrogen 8.0 mg/dl (6-23); Calcium 8.7 mg/dl (8.6-10.3); Carbon Dioxide 26.0 mmol/L (21-32); Chloride 95.0 mmol/L (98-107); Creatinine Clr Calc Pharmacy 84.5 ml/min; Glucose 135.0 mg/dl (70-99(Fasting)); Magnesium 1.9 mg/dl (1.7-2.4); Potassium 3.6 mmol/L (3.5-5.1); Sodium 129.0 mmol/L (136-145)
[2025-04-01] MEDS: SODIUM PHOSPHATE 6 MMOL in SODIUM CHLORIDE 0.9% 100 ML IV ONE (08:54)
[2025-04-01] MEDS: FAMOTIDINE 20MG IV PUSH 20 MG/5 ML SYR IV STA (09:58)
--- NOTE | 2025-04-01 10:14 | Hospitalist Progress Note ---
Date of Service April 01, 2025 Assessment & Plan (1) Elevated lactic acid level: Plan: 60-year-old female with past medical history significant for dyslipidemia, female stress incontinence, history of myalgia and myositis, migraines, trigeminal neuralgia, coccydynia, anxiety state, history of squamous cell carcinoma in situ, medical marijuana use and on indomethacin for about a year for headaches follows with neurology and positive JAKE and following with rheu matology comes because of nausea, vomiting and diarrhea. Patient says the day before she was feeling weak and tired and slept a lot and in the nighttime she started develop diarrhea several episodes and since yesterday morning she is having a lot of nausea with vomiting multiple times and also epigastric abdominal pain and came to the ER. Denies any blood in the vomitus or blood in the stools or any black stools. Denies any fevers. No headache. No dizziness. Vision is okay. No runny nose or sore throat. No cough. No chest pain. No shortness of breath. No rash. Hemodynamics are okay. Elevated lactic acid level and leukocytosis Initial level is 3.2 repeat is 3.5 and again repeat is 3.2 Received liter of fluid in the ER CT abdomen pelvis with IV contrast no acute findings. UA is okay Having nausea vomiting and diarrhea and epigastric pain Will follow stool studies -> pt had no stool since admission , stool pcr ordered Antiemetics as needed Empiric IV Cipro and Flagyl and fluids iv ppi Follow blood cultures - no growth in 24 hrs Follow repeat labs If not improving will consult GI Close monitor 04/01/25 WBC down to 19K from 24K Lactate now normal at 1.6 Pt received IVF, IV antibiotics Reports she has burning in esophagus w/ clear liquids, feels food getting stuck, and has to spit up just with clear liquids, + epigastric pain Will consult w/ GI Headaches Arthritis Holding the indomethacin IV Tylenol as needed for now Fibromyalgia On Cymbalta GERD Currently placed on IV Protonix Hold omeprazole Hyperlipidemia On statin Anxiety On Ativan as needed Positive JAKE Following with rheumatology DVT prophylaxis Lovenox Disposition Telemetry Full code. Admission and Anticipated Discharge Date Admission Date: March 31, 2025 Subjective Pt seen in follow up of nausea, vomiting, diarrhea Pt did not have any BM since being admitted Reports epigastric pain, burning in esophagus, food feeling stuck, and need to spit up even with just clear liquids WBC down to 19K from 24K, lactate now normalized at 1.6. Pt received IVF, IV abx no chest pain, shortness of breath, no fever, chills GI consulted Review of Systems Review of Systems: All systems reviewed & are unremarkable except as noted in Subjective Physical Exam Physical Exam: General- WD/WN F in NAD Head- atraumatic Eyes- PERRL. Neck- supple, no JVD. Lungs- clear to auscultation no wheezing or crackles Heart- regular rate and rhythm; no murmur Abdomen- normal bowel sounds, soft, + epigastric tenderness present Extremities- no pretibial edema, no erythema seen. Neuro- alert, oriented PERRL, no facial palsy; no dysarthria; moves extremities Results & Data Results & Data Vital Signs (Past 12 Hours) Vital Signs Temp Pulse Pulse Resp BP Pulse Ox O2 Del Method 04/01/25 08:00 36.5 C 88 16 144/78 H 96 Room Air 04/01/25 02:40 36.5 C 90 18 137/90 96 Room Air 03/31/25 23:53 36.4 C L 98 H 18 145/90 H 98 Room Air 03/31/25 22:45 95 H Laboratory Results 04/01/25 03/31/25 03/31/25 Range/Units 05:55 18:47 13:05 WBC 19.72 H (4.8-10.8) K/ul RBC 4.51 (4.20-5.40) M/uL Hgb 14.9 14.3 (12.0-16.0) g/dl Hct 41.0 40.2 (37.0-47.0) % MCV 90.9 (80.0-100.0) fL MCH 33.0 (25.0-34.0) pg MCHC 36.3 H (32.0-36.0) g/dL RDW Std Deviation 40.7 (36.4-46.3) fL RDW Coeff of Ray 12.3 (11.5-14.5) % Plt Count 349 (130-400) K/uL MPV 8.8 L (9.4-12.4) fL Immature Gran % (Auto) 0.5 % Neut % (Auto) 82.9 % Lymph % (Auto) 6.9 % [place] % (Auto) 9.6 % Eos % (Auto) 0.0 % Baso % (Auto) 0.1 % Neut # (Auto) 16.34 H (1.40-6.50) K/uL Lymph # (Auto) 1.37 (1.20-3.40) K/uL [place] # (Auto) 1.89 H (0.11-0.59) K/uL Eos # (Auto) 0.00 (0.00-0.50) K/uL Baso # (Auto) 0.02 (0.00-0.20) K/uL Immature Gran # (Auto) 0.10 (0.01-0.20) K/uL Sodium 129 L 131 L 132 L (136-145) mmol/L Potassium 3.6 3.6 3.9 (3.5-5.1) mmol/L Chloride 95 L 97 L 98 (98-107) mmol/L Carbon Dioxide 26 23 25 (21-32) mmol/L Anion Gap 8 11 9 (3-11) BUN 8 7 8 (6-23) mg/dl Creatinine 0.60 0.66 0.74 (0.6-1.2) mg/dl Est Cr Clr Drug Dosing 84.5 76.9 68.5 ml/min eGFR 103.98 101.62 93.72 BUN/Creatinine Ratio 13.3 10.6 10.8 (10-20) Glucose 135 H 147 H 154 H (70-99(Fasting)) mg/dl Lactate 1.6 2.9 H* 3.0 H* (0.4-2.0) mmol/L Calcium 8.7 9.0 8.9 (8.6-10.3) mg/dl Phosphorus 1.9 L (2.5-4.9) mg/dl Magnesium 1.9 (1.7-2.4) mg/dl Lyme Disease Screen (Negative) 03/30/25 Range/Units 23:53 WBC (4.8-10.8) K/ul RBC (4.20-5.40) M/uL Hgb (12.0-16.0) g/dl Hct (37.0-47.0) % MCV (80.0-100.0) fL MCH (25.0-34.0) pg MCHC (32.0-36.0) g/dL RDW Std Deviation (36.4-46.3) fL RDW Coeff of Ray (11.5-14.5) % Plt Count (130-400) K/uL MPV (9.4-12.4) fL Immature Gran % (Auto) % Neut % (Auto) % Lymph % (Auto) % [place] % (Auto) % Eos % (Auto) % Baso % (Auto) % Neut # (Auto) (1.40-6.50) K/uL Lymph # (Auto) (1.20-3.40) K/uL [place] # (Auto) (0.11-0.59) K/uL Eos # (Auto) (0.00-0.50) K/uL Baso # (Auto) (0.00-0.20) K/uL Immature Gran # (Auto) (0.01-0.20) K/uL Sodium (136-145) mmol/L Potassium (3.5-5.1) mmol/L Chloride (98-107) mmol/L Carbon Dioxide (21-32) mmol/L Anion Gap (3-11) BUN (6-23) mg/dl Creatinine (0.6-1.2) mg/dl Est Cr Clr Drug Dosing ml/min eGFR BUN/Creatinine Ratio (10-20) Glucose (70-99(Fasting)) mg/dl Lactate (0.4-2.0) mmol/L Calcium (8.6-10.3) mg/dl Phosphorus (2.5-4.9) mg/dl Magnesium (1.7-2.4) mg/dl Lyme Disease Screen Negative (Negative) Medications Administered Current Inpatient Medications Acetaminophen (Acetaminophen 325 Mg Tab) 650 mg PO Q4H PRN PRN Reason: Pain or Fever Stop: 04/30/25 09:40 Last Admin: 04/01/25 09:05 Dose: 650 mg Albuterol (Albuterol Hfa 8 Gm Inhaler) 1 puffs INH Q4H PRN PRN Reason: Shortness Of Breath Or Wheezin Stop: 04/30/25 02:16 Alprazolam (Alprazolam 0.5 Mg Tablet) 0.5 mg PO DAILY PRN PRN Reason: anxiety Stop: 04/30/25 02:16 Duloxetine HCl (Duloxetine Hcl 60 Mg Cap) 60 mg PO QAM [facility] Stop: 04/30/25 08:59 Last Admin: 04/01/25 08:55 Dose: 60 mg Enoxaparin Sodium (Enoxaparin Inj 40 Mg/0.4 Ml Syr) 40 mg SQ Q24H [facility] Stop: 04/30/25 08:59 Last Admin: 03/31/25 09:25 Dose: Not Given Fluticasone Propionate (Fluticasone Propionate Na Spr 16 Gm Btl) 1 sprays NA DAILY [facility] Stop: 04/30/25 08:59 Last Admin: 04/01/25 08:55 Dose: 1 sprays Pantoprazole Sodium (Protonix) 40 mg in 10 mls @ 5 mls/min IV BID [facility] Stop: 04/30/25 08:59 Last Admin: 04/01/25 08:56 Dose: 5 mls/min Ciprofloxacin (Cipro / D5w) 400 mg in 200 mls @ 100 mls/hr IV Q12H [facility]; Protocol Stop: 04/10/25 03:59 Last Infusion: 04/01/25 06:02 Dose: Infused Metronidazole (Flagyl) 500 mg in 100 mls @ 100 mls/hr IV Q8H [facility]; Protocol Stop: 04/10/25 02:59 Last Infusion: 04/01/25 03:40 Dose: Infused Promethazine HCl (Phenergan) 12.5 mg in 50.5 mls @ 202 mls/hr IV Q6H PRN PRN Reason: Nausea And Vomiting Stop: 04/30/25 02:32 Last Infusion: 04/01/25 09:51 Dose: Infused Sodium Chloride (Nss) 1,000 mls @ 100 mls/hr IV .Q10H [facility] Stop: 04/03/25 09:44 Last Admin: 04/01/25 05:29 Dose: 100 mls/hr Nitroglycerin (Nitroglycerin Sl 0.4 Mg/Tab Tab) 0.4 mg SL Q5M PRN PRN Reason: Chest Pain Stop: 04/30/25 02:16 Rosuvastatin Calcium (Rosuvastatin Calcium 10 Mg Tab) 10 mg PO DAILY [facility] Stop: 04/30/25 08:59 Last Admin: 04/01/25 08:55 Dose: 10 mg
--- NOTE | 2025-04-01 10:57 | Gastrointestinal Consultation ---
Date of Consultation April 01, 2025 Assessment & Plan (1) Nausea, vomiting, and diarrhea: (2) Abdominal pain: Plan Patient admitted with complaints of nausea, vomiting, diarrhea, abdominal pain, and painful swallowing. Initially she had elevated lactic acid and leukocytosis. WBC trending down. lactic acid normalized. she has ongoing symptoms. - continue with protonix 40mg bid. - continue with cipro/flagyl. - will plan for potential EGD tomorrow for further evaluation. - Further recommendations to come with Supervising GI provider on medical rounds. Please see co-signature comments. Supervising Physician Co-Signing Physician Notes I saw and examined this patient with our nurse practitioner and agree with her assessment and plan. In light of short history of symptoms and acute onset most consistent with an enteric infectious process. Diarrhea resolved unable to obtain stool studies. Will continue to treat symptomatically. If symptoms persist will proceed with endoscopy tentatively planned for tomorrow. History of Present Illness Reason for Consultation: persistent nausea, epigastric pain, food feeling stuck. Requesting Physician: David Petersen MD Attending Physician: David Petersen MD History of Present Illness Patient is a 60 year old female with past medical history significant for dyslipidemia, female stress incontinence, history of myalgia and myositis, migraines, trigeminal neuralgia, coccydynia, anxiety state, history of squamous cell carcinoma in situ, medical marijuana use and on indomethacin for about a year for headaches follows with neurology and positive JAKE and following with rheumatology who presented to the ED on 03/30 with complaints of nausea, vomiting, mid epigastric abdominal pain, and diarrhea that started suddenly 3 days ago. No ill contacts. she notes that since admission her diarrhea has resolved, but she still has ongoing nausea, vomiting, and mid epigastric pain. she is also getting pain in her throat/chest when she swallows. she does not feel like there is anything actively stuck. Initially, she had elevated lactic acid and leukocytosis, but there have been improvements in both. she admits to history of reflux, but this has been controlled as an outpatient with omeprazole. no nsaid use. The remainder of the GI ROS were unremarkable. She reports that she had an EGD "years ago" at [facility] and reports it shown esophagitis. I do not have these records for review. 04/01/25 WBC 19.7, Hgb 14.9, HCT 41, platelets 349, Na 129, K 3.6, BUN 8, creatinine 0.6. 03/30/25 CT A/P Postop changes prior cholecystectomy. Stable bilateral parapelvic renal cysts. Allergies Allergy/AdvReac Type Severity Reaction Status Date / Time Penicillins Allergy Mild Rash/hives/throat Verified 03/30/25 20:08 swelling latex Allergy Unknown SCABS, Verified 03/30/25 20:08 ITCHY, SORE walnut Allergy swelling Verified 03/30/25 20:08 in throat baclofen AdvReac Severe Confusion Verified 03/30/25 20:08 bacitracin AdvReac Intermediate blisters Verified 03/30/25 20:08 onabotulinumtoxinA AdvReac muscle Verified 03/30/25 20:08 [From Botox] tightness in neck COVALT Allergy Unknown . Uncoded 03/30/25 20:08 Home Medications Medication Instructions Recorded Confirmed Type acyclovir 5 % topical ointment 1 applic topical DIRECTED 07/04/18 03/30/25 History valacyclovir 500 mg tablet 500 mg PO TID PRN Recurrent Episode 07/04/18 03/30/25 History (Valtrex) acetaminophen 650 mg 650 mg PO Q8H PRN Pain 02/08/22 03/30/25 History tablet,extended release (Tylenol Arthritis Pain) docusate sodium 100 mg capsule 100 mg PO BID 02/08/22 03/30/25 History (Colace) indomethacin 75 mg 75 mg PO BID 90 days #180 caps 05/01/24 03/30/25 Rx capsule,extended release furosemide 40 mg tablet (Lasix) 40 mg PO DAILY PRN swelling 05/30/24 03/30/25 History ondansetron HCl 4 mg tablet 4 mg PO Q8H PRN Nausea 05/30/24 03/30/25 History rosuvastatin 10 mg tablet 10 mg PO DAILY 05/30/24 03/30/25 History alprazolam 0.5 mg tablet 0.5 mg PO DAILY PRN anxiety #90 07/01/24 03/30/25 Rx tabs ketorolac 10 mg tablet 10 mg PO DAILY PRN Pain 30 days 07/01/24 03/30/25 Rx #12 tabs albuterol sulfate 90 mcg/actuation 1 puff inhalation Q4H PRN 03/30/25 03/30/25 History aerosol inhaler Shortness Of Breath Or Wheezing duloxetine 60 mg capsule,delayed 60 mg PO QAM 03/30/25 03/30/25 History release (Cymbalta) famotidine 20 mg tablet 20 mg PO DAILY 03/30/25 03/30/25 History fluticasone propionate 50 1 spray intranasal DAILY 03/30/25 03/30/25 History mcg/actuation nasal spray,suspension omeprazole 40 mg capsule,delayed 40 mg PO QAM 03/30/25 03/30/25 History release ondansetron 4 mg disintegrating 4 mg PO Q6H PRN nausea and 03/30/25 Rx tablet vomiting #14 tabs Patient History Medical History (Updated 03/30/25 @ 23:16 by Alicia Zeng MD) Hyperlipidemia Surgical History (Updated 05/30/24 @ 08:16 by Adams Fontaine DO) Deviated septum Hx of tonsillectomy S/P cervical spinal fusion C2-C3 H/O: hysterectomy S/P shoulder surgery S/P cholecystectomy Family History Son Diabetes Family/Other Diabetes Cancer Grandmother Cancer Father Hypertension Daughter Migraine headache Other Gallbladder disease Social History (Updated 05/30/24 @ 08:16 by Adams Fontaine DO) Smoking Status: Never smoker Hx Alcohol Use: No Hx Substance Use: Yes Prescribed Medications: Marijuana Substance Use Type Other:: MJ edibles, occasionally Preferred Language: Mosotho Communication Ability: Effective Visual Impairment: No Limitations Hearing Ability: Normal Rail Layer Required: No Beliefs That Will Affect Care: None marital status: Current Living Situation: Spouse Current Living Situation Comment: In home, with , no steps to enter current occupational status: employed current occupation: owns a [employer] Other Information That Helps Us Care for You: No Feels Safe at Home: Yes Safety Concerns: Feels Safe At This Time Assistive Devices: None Assistive Devices Comment: Reading glasses PRN Review of Systems Review of Systems: All systems reviewed & are unremarkable except as noted in HPI & below Physical Exam Constitutional: WD/WN, vitals as above Respiratory: normal respiratory effort, lungs clear to auscultation Cardiovascular: Rate/Rhythm: regular rate and regular rhythm Gastrointestinal (Abdomen): mid epigastric tenderness to palpation, no guarding, soft, normal bowel sounds. Psychiatric: Orientation: alert and oriented x 3 Affect: euthymic affect Results & Data Vital Signs (Past 12 Hours) Vital Signs Temp Pulse Pulse Resp BP Pulse Ox O2 Del Method 04/01/25 08:00 88 04/01/25 08:00 97.7 F 88 16 144/78 H 96 Room Air 04/01/25 02:40 97.7 F 90 18 137/90 96 Room Air 03/31/25 23:53 97.5 F L 98 H 18 145/90 H 98 Room Air Laboratory Results Laboratory Results - last 48 hr 03/30/25 03/30/25 03/30/25 19:33 20:03 21:21 WBC 24.02 H RBC 4.74 Hgb 15.3 Hct 43.4 MCV 91.6 MCH 32.3 MCHC 35.3 RDW Std Deviation 40.6 RDW Coeff of Ray 12.2 Plt Count 372 MPV 8.7 L Immature Gran % (Auto) 0.5 Neut % (Auto) 88.9 Lymph % (Auto) 5.0 [place] % (Auto) 5.4 Eos % (Auto) 0.0 Baso % (Auto) 0.2 Neut # (Auto) 21.36 H Lymph # (Auto) 1.21 [place] # (Auto) 1.29 H Eos # (Auto) 0.00 Baso # (Auto) 0.04 Immature Gran # (Auto) 0.12 Sodium 135 L Potassium 4.5 Chloride 97 L Carbon Dioxide 25 Anion Gap 13 H BUN 15 Creatinine 0.72 Est Cr Clr Drug Dosing 70.5 eGFR 96.86 BUN/Creatinine Ratio 20.8 H Glucose 154 H Lactate 3.2 H* Calcium 10.0 Phosphorus Magnesium Total Bilirubin 0.5 AST 35 ALT 18 Alkaline Phosphatase 93 Total Protein 8.4 H Albumin 5.2 H Globulin 3.2 Albumin/Globulin Ratio 1.6 Lipase 13 Procalcitonin < 0.02 HCG, Qual Negative Urine Color Yellow Urine Appearance Clear Urine pH 7.0 Ur Specific [place] 1.026 Urine Protein 4+ H Urine Glucose (UA) 1+ H Urine Ketones Trace H Urine Blood 2+ H Urine Nitrite Negative Urine Bilirubin Negative Urine Urobilinogen Negative Ur Leukocyte Esterase Negative Urine WBC (Auto) 0-5 Urine RBC (Auto) 11-20 H U Hyaline Cast (Auto) 3-5 H U Epithel Cells (Auto) 0-2 Urine Bacteria (Auto) None Seen Urine Comment Anaplasma Smear Babesia Smear Lyme Disease Screen 03/30/25 03/30/25 03/31/25 22:45 23:53 01:12 WBC RBC Hgb Hct MCV MCH MCHC RDW Std Deviation RDW Coeff of Ray Plt Count MPV Immature Gran % (Auto) Neut % (Auto) Lymph % (Auto) [place] % (Auto) Eos % (Auto) Baso % (Auto) Neut # (Auto) Lymph # (Auto) [place] # (Auto) Eos # (Auto) Baso # (Auto) Immature Gran # (Auto) Sodium Potassium Chloride Carbon Dioxide Anion Gap BUN Creatinine Est Cr Clr Drug Dosing eGFR BUN/Creatinine Ratio Glucose Lactate 3.5 H* 3.2 H* Calcium Phosphorus Magnesium Total Bilirubin AST ALT Alkaline Phosphatase Total Protein Albumin Globulin Albumin/Globulin Ratio Lipase Procalcitonin HCG, Qual Urine Color Urine Appearance Urine pH Ur Specific [place] Urine Protein Urine Glucose (UA) Urine Ketones Urine Blood Urine Nitrite Urine Bilirubin Urine Urobilinogen Ur Leukocyte Esterase Urine WBC (Auto) Urine RBC (Auto) U Hyaline Cast (Auto) U Epithel Cells (Auto) Urine Bacteria (Auto) Urine Comment Anaplasma Smear See Comment Babesia Smear See Comment Lyme Disease Screen Negative 03/31/25 03/31/25 03/31/25 05:49 07:21 09:20 WBC 24.34 H RBC 4.29 Hgb 13.9 Hct 39.7 MCV 92.5 MCH 32.4 MCHC 35.0 RDW Std Deviation 42.1 RDW Coeff of Ray 12.6 Plt Count 349 MPV 8.9 L Immature Gran % (Auto) 0.7 Neut % (Auto) 84.4 Lymph % (Auto) 6.6 [place] % (Auto) 8.1 Eos % (Auto) 0.0 Baso % (Auto) 0.2 Neut # (Auto) 20.56 H Lymph # (Auto) 1.60 [place] # (Auto) 1.97 H Eos # (Auto) 0.00 Baso # (Auto) 0.04 Immature Gran # (Auto) 0.17 Sodium 136 Potassium 4.0 Chloride 101 Carbon Dioxide 26 Anion Gap 9 BUN 9 Creatinine 0.71 Est Cr Clr Drug Dosing 71.4 eGFR 98.49 BUN/Creatinine Ratio 12.7 Glucose 143 H Lactate 3.4 H* 2.4 H* Calcium 8.6 Phosphorus Magnesium 1.5 L Total Bilirubin AST ALT Alkaline Phosphatase Total Protein Albumin Globulin Albumin/Globulin Ratio Lipase Procalcitonin HCG, Qual Urine Color Urine Appearance Urine pH Ur Specific [place] Urine Protein Urine Glucose (UA) Urine Ketones Urine Blood Urine Nitrite Urine Bilirubin Urine Urobilinogen Ur Leukocyte Esterase Urine WBC (Auto) Urine RBC (Auto) U Hyaline Cast (Auto) U Epithel Cells (Auto) Urine Bacteria (Auto) Urine Comment Anaplasma Smear Babesia Smear Lyme Disease Screen 03/31/25 03/31/25 04/01/25 13:05 18:47 05:55 WBC 19.72 H RBC 4.51 Hgb 14.3 14.9 Hct 40.2 41.0 MCV 90.9 MCH 33.0 MCHC 36.3 H RDW Std Deviation 40.7 RDW Coeff of Ray 12.3 Plt Count 349 MPV 8.8 L Immature Gran % (Auto) 0.5 Neut % (Auto) 82.9 Lymph % (Auto) 6.9 [place] % (Auto) 9.6 Eos % (Auto) 0.0 Baso % (Auto) 0.1 Neut # (Auto) 16.34 H Lymph # (Auto) 1.37 [place] # (Auto) 1.89 H Eos # (Auto) 0.00 Baso # (Auto) 0.02 Immature Gran # (Auto) 0.10 Sodium 132 L 131 L 129 L Potassium 3.9 3.6 3.6 Chloride 98 97 L 95 L Carbon Dioxide 25 23 26 Anion Gap 9 11 8 BUN 8 7 8 Creatinine 0.74 0.66 0.60 Est Cr Clr Drug Dosing 68.5 76.9 84.5 eGFR 93.72 101.62 103.98 BUN/Creatinine Ratio 10.8 10.6 13.3 Glucose 154 H 147 H 135 H Lactate 3.0 H* 2.9 H* 1.6 Calcium 8.9 9.0 8.7 Phosphorus 1.9 L Magnesium 1.9 Total Bilirubin AST ALT Alkaline Phosphatase Total Protein Albumin Globulin Albumin/Globulin Ratio Lipase Procalcitonin HCG, Qual Urine Color Urine Appearance Urine pH Ur Specific [place] Urine Protein Urine Glucose (UA) Urine Ketones Urine Blood Urine Nitrite Urine Bilirubin Urine Urobilinogen Ur Leukocyte Esterase Urine WBC (Auto) Urine RBC (Auto) U Hyaline Cast (Auto) U Epithel Cells (Auto) Urine Bacteria (Auto) Urine Comment Anaplasma Smear Babesia Smear Lyme Disease Screen Coding Level of Care Code 68717 IN/OBS CONSULT LVL 4,60M Diagnoses Nausea, vomiting, and diarrhea R11.2; R19.7 Abdominal pain R10.9 Abdominal location: unspecified location (2) Abdominal pain Abdominal location: unspecified location Qualified Code(s): R10.9 - Unspecified abdominal pain
[2025-04-01] MEDS: SODIUM PHOSPHATE 3 MMOL/1 ML INFUSION IV STA (11:05)
[2025-04-01] MEDS: ONDANSETRON INJ 2 MG/ML 2 ML VIAL IV STA (20:08)
[2025-04-02 06:17] LABS: Hematocrit (blood only) 42.4 % (37.0-47.0); Hemoglobin 14.9 g/dl (12.0-16.0); Mean Corpuscular Hemoglobin 32.3 pg (25.0-34.0); Mean Corpuscular Volume 92.0 fL (80.0-100.0); Platelet Count 332 K/uL (130-400); RDW Standard Deviation 41.9 fL (36.4-46.3); Red Blood Count 4.61 M/uL (4.20-5.40); White Blood Count 14.00 K/ul (4.8-10.8)
[2025-04-02 06:42] LABS: Anion Gap 7.0 (3-11); Blood Urea Nitrogen 10.0 mg/dl (6-23); Calcium 8.5 mg/dl (8.6-10.3); Carbon Dioxide 28.0 mmol/L (21-32); Chloride 99.0 mmol/L (98-107); Creatinine Clr Calc Pharmacy 76.9 ml/min; Glucose 128.0 mg/dl (70-99(Fasting)); Magnesium 2.0 mg/dl (1.7-2.4); Potassium 3.3 mmol/L (3.5-5.1); Sodium 134.0 mmol/L (136-145)
--- NOTE | 2025-04-02 08:05 | Hospitalist Progress Note ---
Date of Service April 02, 2025 Assessment & Plan (1) Elevated lactic acid level: Plan: 60-year-old female with past medical history significant for dyslipidemia, female stress incontinence, history of myalgia and myositis, migraines, trigeminal neuralgia, coccydynia, anxiety state, history of squamous cell carcinoma in situ, medical marijuana use and on indomethacin for about a year for headaches follows with neurology and positive JAKE and following with rheu matology comes because of nausea, vomiting and diarrhea. Patient says the day before she was feeling weak and tired and slept a lot and in the nighttime she started develop diarrhea several episodes and since yesterday morning she is having a lot of nausea with vomiting multiple times and also epigastric abdominal pain and came to the ER. Denies any blood in the vomitus or blood in the stools or any black stools. Denies any fevers. No headache. No dizziness. Vision is okay. No runny nose or sore throat. No cough. No chest pain. No shortness of breath. No rash. Hemodynamics are okay. Elevated lactic acid level and leukocytosis Initial level is 3.2 repeat is 3.5 and again repeat is 3.2 Received liter of fluid in the ER CT abdomen pelvis with IV contrast no acute findings. UA is okay Having nausea vomiting and diarrhea and epigastric pain Will follow stool studies -> pt had no stool since admission , stool pcr ordered Antiemetics as needed Empiric IV Cipro and Flagyl and fluids iv ppi Follow blood cultures - no growth in 24 hrs Follow repeat labs If not improving will consult GI Close monitor 04/01/25 WBC down to 19K from 24K Lactate now normal at 1.6 Pt received IVF, IV antibiotics Reports she has burning in esophagus w/ clear liquids, feels food getting stuck, and has to spit up just with clear liquids, + epigastric pain Will consult w/ GI 04/02 WBC down to 14K Overall she feel symptoms not improved GI consulted and plan for EGD today Headaches Arthritis Holding the indomethacin IV Tylenol as needed for now Fibromyalgia On Cymbalta GERD Currently placed on IV Protonix Hold omeprazole Hyperlipidemia On statin Anxiety On Ativan as needed Positive JAKE Following with rheumatology DVT prophylaxis Lovenox Disposition Telemetry Full code. Admission and Anticipated Discharge Date Admission Date: March 31, 2025 Subjective Pt seen in follow up of nausea, vomiting, diarrhea Pt did not have any BM since being admitted Reports epigastric pain, burning in esophagus, food feeling stuck, and need to spit up even with just clear liquids WBC down to 14K today, 19K yesterday from 24K, lactate now normalized at 1.6. Pt received IVF, IV abx no chest pain, shortness of breath, no fever, chills GI consulted - lopez for EGD today Review of Systems Review of Systems: All systems reviewed & are unremarkable except as noted in Subjective Physical Exam Physical Exam: General- WD/WN F in NAD Head- atraumatic Eyes- PERRL. Neck- supple, no JVD. Lungs- clear to auscultation no wheezing or crackles Heart- regular rate and rhythm; no murmur Abdomen- normal bowel sounds, soft, + epigastric tenderness present Extremities- no pretibial edema, no erythema seen. Neuro- alert, oriented PERRL, no facial palsy; no dysarthria; moves extremities Results & Data Results & Data Vital Signs (Past 12 Hours) Vital Signs Temp Pulse Pulse Resp BP Pulse Ox O2 Del Method 04/02/25 07:34 37.2 C 94 H 19 114/80 97 Room Air 04/02/25 02:44 36.8 C 117 H 17 123/91 98 Room Air 04/01/25 22:54 36.6 C 96 H 17 122/83 98 Room Air 04/01/25 22:29 96 H Laboratory Results 04/02/25 Range/Units 05:49 WBC 14.00 H (4.8-10.8) K/ul RBC 4.61 (4.20-5.40) M/uL Hgb 14.9 (12.0-16.0) g/dl Hct 42.4 (37.0-47.0) % MCV 92.0 (80.0-100.0) fL MCH 32.3 (25.0-34.0) pg MCHC 35.1 (32.0-36.0) g/dL RDW Std Deviation 41.9 (36.4-46.3) fL RDW Coeff of Ray 12.4 (11.5-14.5) % Plt Count 332 (130-400) K/uL MPV 8.6 L (9.4-12.4) fL Sodium 134 L (136-145) mmol/L Potassium 3.3 L (3.5-5.1) mmol/L Chloride 99 (98-107) mmol/L Carbon Dioxide 28 (21-32) mmol/L Anion Gap 7 (3-11) BUN 10 (6-23) mg/dl Creatinine 0.66 (0.6-1.2) mg/dl Est Cr Clr Drug Dosing 76.9 ml/min eGFR 101.62 BUN/Creatinine Ratio 15.2 (10-20) Glucose 128 H (70-99(Fasting)) mg/dl Calcium 8.5 L (8.6-10.3) mg/dl Phosphorus 1.9 L (2.5-4.9) mg/dl Magnesium 2.0 (1.7-2.4) mg/dl Medications Administered Current Inpatient Medications Acetaminophen (Acetaminophen 325 Mg Tab) 650 mg PO Q4H PRN PRN Reason: Pain or Fever Stop: 04/30/25 09:40 Last Admin: 04/02/25 00:54 Dose: 650 mg Albuterol (Albuterol Hfa 8 Gm Inhaler) 1 puffs INH Q4H PRN PRN Reason: Shortness Of Breath Or Wheezin Stop: 04/30/25 02:16 Alprazolam (Alprazolam 0.5 Mg Tablet) 0.5 mg PO DAILY PRN PRN Reason: anxiety Stop: 04/30/25 02:16 Duloxetine HCl (Duloxetine Hcl 60 Mg Cap) 60 mg PO QAM GEORGE Stop: 04/30/25 08:59 Last Admin: 04/01/25 08:55 Dose: 60 mg Enoxaparin Sodium (Enoxaparin Inj 40 Mg/0.4 Ml Syr) 40 mg SQ Q24H GEORGE Stop: 04/30/25 08:59 Last Admin: 03/31/25 09:25 Dose: Not Given Fluticasone Propionate (Fluticasone Propionate Na Spr 16 Gm Btl) 1 sprays NA DAILY GEORGE Stop: 04/30/25 08:59 Last Admin: 04/01/25 08:55 Dose: 1 sprays Pantoprazole Sodium (Protonix) 40 mg in 10 mls @ 5 mls/min IV BID GEORGE Stop: 04/30/25 08:59 Last Admin: 04/01/25 20:08 Dose: 5 mls/min Ciprofloxacin (Cipro / D5w) 400 mg in 200 mls @ 100 mls/hr IV Q12H GEORGE; Protocol Stop: 04/10/25 03:59 Last Infusion: 04/02/25 05:47 Dose: Infused Metronidazole (Flagyl) 500 mg in 100 mls @ 100 mls/hr IV Q8H GEORGE; Protocol Stop: 04/10/25 02:59 Last Infusion: 04/02/25 03:40 Dose: Infused Promethazine HCl (Phenergan) 12.5 mg in 50.5 mls @ 202 mls/hr IV Q6H PRN PRN Reason: Nausea And Vomiting Stop: 04/30/25 02:32 Last Infusion: 04/01/25 19:19 Dose: Infused Sodium Chloride (Nss) 1,000 mls @ 100 mls/hr IV .Q10H GEORGE Stop: 04/03/25 09:44 Last Admin: 04/02/25 01:14 Dose: 100 mls/hr Nitroglycerin (Nitroglycerin Sl 0.4 Mg/Tab Tab) 0.4 mg SL Q5M PRN PRN Reason: Chest Pain Stop: 04/30/25 02:16 Potassium Phosphate (Potassium Phos 3 Mmol/1 Ml Infusion) 9 mmol IV NOW STA Stop: 04/02/25 08:03 Rosuvastatin Calcium (Rosuvastatin Calcium 10 Mg Tab) 10 mg PO DAILY GEORGE Stop: 04/30/25 08:59 Last Admin: 04/01/25 08:55 Dose: 10 mg
--- NOTE | 2025-04-02 08:21 | History & Physical Bridge Note ---
Date of Service April 02, 2025 History & Physical Bridge Note I have examined the patient, reviewed the History & Physical and in the interval since the performance of the History & Physical I have noted the following changes of clinical significance: no changes noted Patient seen today. Completed NPO orders. No concerns. Plan to proceed with EGD as scheduled. Supervising Physician Co-Signing Physician Notes I saw and examined this patient with our nurse practitioner and agree with her assessment and plan. Still with nausea and vomiting and some mild dysphagia. Will proceed with endoscopy today.
[2025-04-02] MEDS: POTASSIUM PHOSPHATE 9 MMOL in SODIUM CHLORIDE 0.9% 250 ML IV ONE (09:02)
--- NOTE | 2025-04-02 12:18 | Anesthesiology Consultation ---
Date of Service April 02, 2025 Assessment & Plan (1) Encounter for pre-operative examination: Chart Review Chart Review: Acceptable Risk for Surgery and Patient NOT seen in Pre Admission Testing Consults Requested none History Surgery Operation Date: 04/02/25 17:10 Proposed Procedures p Esophagogastroduodenoscopy Dr. Mj Barker MD Height/Weight Height: 5 ft 3 in Weight: 59.4 kg Allergies Allergy/AdvReac Type Severity Reaction Status Date / Time Penicillins Allergy Mild Rash/hives/throat Verified 03/30/25 20:08 swelling latex Allergy Unknown SCABS, Verified 03/30/25 20:08 ITCHY, SORE walnut Allergy swelling Verified 03/30/25 20:08 in throat baclofen AdvReac Severe Confusion Verified 03/30/25 20:08 bacitracin AdvReac Intermediate blisters Verified 03/30/25 20:08 onabotulinumtoxinA AdvReac muscle Verified 03/30/25 20:08 [From Botox] tightness in neck COVALT Allergy Unknown . Uncoded 03/30/25 20:08 Medications Home Medications Medication Instructions Recorded Confirmed Last Taken acyclovir 5 % topical ointment 1 applic topical DIRECTED 07/04/18 03/30/25 04/20/19 valacyclovir 500 mg tablet 500 mg PO TID PRN Recurrent Episode 07/04/18 03/30/25 Unknown (Valtrex) acetaminophen 650 mg 650 mg PO Q8H PRN Pain 02/08/22 03/30/25 Unknown tablet,extended release (Tylenol Arthritis Pain) docusate sodium 100 mg capsule 100 mg PO BID 02/08/22 03/30/25 03/30/25 (Colace) indomethacin 75 mg 75 mg PO BID 90 days #180 caps 05/01/24 03/30/25 03/30/25 capsule,extended release furosemide 40 mg tablet (Lasix) 40 mg PO DAILY PRN swelling 05/30/24 03/30/25 Unknown ondansetron HCl 4 mg tablet 4 mg PO Q8H PRN Nausea 05/30/24 03/30/25 Unknown rosuvastatin 10 mg tablet 10 mg PO DAILY 05/30/24 03/30/25 03/30/25 alprazolam 0.5 mg tablet 0.5 mg PO DAILY PRN anxiety #90 07/01/24 03/30/2525 tabs ketorolac 10 mg tablet 10 mg PO DAILY PRN Pain 30 days 07/01/24 03/30/25 Unknown #12 tabs albuterol sulfate 90 mcg/actuation 1 puff inhalation Q4H PRN 03/30/25 03/30/25 Unknown aerosol inhaler Shortness Of Breath Or Wheezing duloxetine 60 mg capsule,delayed 60 mg PO QAM 03/30/25 03/30/25 03/30/25 release (Cymbalta) famotidine 20 mg tablet 20 mg PO DAILY 03/30/25 03/30/25 Unknown fluticasone propionate 50 1 spray intranasal DAILY 03/30/25 03/30/25 03/30/25 mcg/actuation nasal spray,suspension omeprazole 40 mg capsule,delayed 40 mg PO QAM 03/30/25 03/30/25 03/30/25 release ondansetron 4 mg disintegrating 4 mg PO Q6H PRN nausea and 03/30/25 Unknown tablet vomiting #14 tabs Active Medications Generic Name Dose Route Start Last Admin Trade Name Freq PRN Reason Stop Dose Admin Acetaminophen 650 mg 03/31/25 09:41 04/02/25 09:02 Acetaminophen 325 Mg Tab PO 04/30/25 09:40 650 mg Q4H PRN Administration Pain or Fever Duloxetine HCl 60 mg 03/31/25 09:00 04/02/25 09:03 Duloxetine Hcl 60 Mg Cap PO 04/30/25 08:59 60 mg QAM GEORGE Administration Enoxaparin Sodium 40 mg 03/31/25 09:00 03/31/25 09:25 Enoxaparin Inj 40 Mg/0.4 Ml Syr SQ 04/30/25 08:59 Not Given Q24H GEORGE Fluticasone Propionate 1 sprays 03/31/25 09:00 04/02/25 09:03 Fluticasone Propionate Na Spr 16 Gm Btl NA 04/30/25 08:59 1 sprays DAILY GEORGE Administration Pantoprazole Sodium 40 mg in 10 mls @ 5 mls/min 03/31/25 09:00 04/02/25 09:03 Protonix IV 04/30/25 08:59 5 mls/min BID GEORGE Administration Ciprofloxacin 400 mg in 200 mls @ 100 mls/hr 03/31/25 04:00 04/02/25 05:47 Cipro / D5w IV 04/10/25 03:59 Infused Q12H GEORGE Infusion Protocol Metronidazole 500 mg in 100 mls @ 100 mls/hr 03/31/25 03:00 04/02/25 12:38 Flagyl IV 04/10/25 02:59 100 mls/hr Q8H GEORGE Administration Protocol Promethazine HCl 12.5 mg in 50.5 mls @ 202 mls/hr 03/31/25 02:33 04/02/25 10:28 Phenergan IV 04/30/25 02:32 Infused Q6H PRN Infusion Nausea And Vomiting Sodium Chloride 1,000 mls @ 100 mls/hr 03/31/25 09:45 04/02/25 12:39 Nss IV 04/03/25 09:44 100 mls/hr .Q10H GEORGE Administration Rosuvastatin Calcium 10 mg 03/31/25 09:00 04/02/25 09:03 Rosuvastatin Calcium 10 Mg Tab PO 04/30/25 08:59 10 mg DAILY GEORGE Administration Past Medical History Medical History Encounter for pre-operative examination Bilateral lumbar radiculopathy Nausea, vomiting, and diarrhea Positive JAKE (antinuclear antibody) Migraine with aura Anxiety Elevated lactic acid level SIRS (systemic inflammatory response syndrome) Hyperlipidemia Exercise / Class Metabolic Activity II 4-5 Yardwork/Stairs/Walk up hill Past Family History Family History Son Diabetes Family/Other Diabetes Cancer Grandmother Cancer Father Hypertension Daughter Migraine headache Other Gallbladder disease Past Surgical History Surgical History Deviated septum Hx of tonsillectomy S/P cervical spinal fusion C2-C3 H/O: hysterectomy S/P shoulder surgery S/P cholecystectomy Social History Smoking Status: Never smoker Hx Alcohol Use: No Alcohol type: wine Hx Substance Use: Yes substance use type: marijuana Substance Use Type Other:: MJ edibles, occasionally Physical Exam Vital Signs Last Vital Signs Temp 36.3 C L 04/02/25 11:20 Pulse 102 H 04/02/25 11:20 Resp 19 04/02/25 11:20 BP 127/84 04/02/25 11:20 Pulse Ox 97 04/02/25 11:20 O2 Del Method Room Air 04/02/25 11:20 Testing Laboratory Results 04/02/25 05:49 04/02/25 05:49 Urine Color Yellow 03/30/25 20:03 Urine Appearance Clear (Clear) 03/30/25 20:03 Urine pH 7.0 (4.5-7.5) 03/30/25 20:03 Ur Specific Valera 1.026 (1.000-1.030) 03/30/25 20:03 Urine Protein 4+ (Negative) H 03/30/25 20:03 Urine Glucose (UA) 1+ (Negative) H 03/30/25 20:03 Urine Ketones Trace (Negative) H 03/30/25 20:03 Urine Nitrite Negative (Negative) 03/30/25 20:03 Ur Leukocyte Esterase Negative (Negative) 03/30/25 20:03 Urine WBC (Auto) 0-5 /hpf (0-5) 03/30/25 20:03 Urine RBC (Auto) 11-20 /hpf (0-2) H 03/30/25 20:03 U Hyaline Cast (Auto) 3-5 /lpf (0-2) H 03/30/25 20:03 U Epithel Cells (Auto) 0-2 /hpf (0-2) 03/30/25 20:03 Urine Bacteria (Auto) None Seen (None Seen) 03/30/25 20:03 03/30/25 23:53 Aerobic Blood Culture - Preliminary Blood No growth in Aerobic bottle after 48 hours. Anaerobic Blood Culture - Preliminary No growth in Anaerobic bottle after 48 hours. 03/31/25 00:07 Aerobic Blood Culture - Preliminary Blood No growth in Aerobic bottle after 48 hours. Anaerobic Blood Culture - Preliminary No growth in Anaerobic bottle after 48 hours.
--- NOTE | 2025-04-02 14:18 | GI REPORT ---
[facility] Patient: EDIE BRADY : 1965 Sex at : Female Age: 60 Years Procedure: Upper GI endoscopy Date: 04/02/2025 Attending Physician: Sam Barker MD Referring MD: David Petersen Md Indications: - Epigastric abdominal pain - Nausea and vomiting Medications: - Monitored Anesthesia Care Complications: - No immediate complications. Procedure: - Prior to the procedure, a History and Physical was performed, and patient medications and allergies were reviewed. The patient's tolerance of previous anesthesia was also reviewed. The risks and benefits of the procedure and the sedation options and risks were discussed with the patient. All questions were answered, and informed consent was obtained. [Anticoagulant Agents] [Days Prior to Procedure]. [ASA Grade]. After reviewing the risks and benefits, the patient was deemed in satisfactory condition to undergo the procedure. - The egd scope was introduced through the mouth and advanced to the second part of the duodenum. - The upper GI endoscopy was accomplished without difficulty. - The patient tolerated the procedure well. Findings: - Diffuse mild mucosal changes characterized by erythema were found in the lower third of the esophagus. Biopsies were taken with a cold forceps for histology. - Patchy mild inflammation characterized by erythema was found in the gastric antrum and in the gastric body. Biopsies were taken with a cold forceps for Helicobacter pylori testing. - The examined duodenum was normal. Impression: - Erythematous mucosa in the esophagus. Biopsied. - Gastritis, characterized by erythema. Biopsied. - Normal examined duodenum. Recommendation: - Resume previous diet. - Patient has a contact number available for emergencies. The signs and symptoms of potential delayed complications were discussed with the patient. Return to normal activities tomorrow. Written discharge instructions were provided to the patient. Procedure Code(s): - 09136, Esophagogastroduodenoscopy, flexible, transoral; with biopsy, single or multiple Diagnosis Code(s): - R10.13, Epigastric pain - K22.89, Other specified disease of esophagus - K29.70, Gastritis, unspecified, without bleeding CPT(R) - 2022 copyright [employer]. All Rights Reserved. The CPT codes, CCI edits and ICD codes generated are intended as suggestions and were generated based on input data. These codes are preliminary and upon can bander operator review may be revised to meet current compliance and payer requirements. The provider is responsible for the final determination of appropriate codes, and modifiers. Sam Barker MD This document has been electronically signed. Note Initiated:04/02/2025 Note Completed:04/02/2025 2:17 PM [id number]
--- NOTE | 2025-04-02 14:28 | Communication Note ---
Date of Service: April 02, 2025 Completed EGD today which revealed findings of esophagitis and gastritis. Biopsies pending. Would recommend ongoing treatment with PPI tapered to control symptoms. Would recommend avoidance of NSAIDs, alcohol and tobacco products. F/U with PCP for ongoing monitoring. May f/u wt GI as outpatient with any concerns or ongoing symptoms. Please feel free to reach out with any concerns.
--- NOTE | 2025-04-02 14:48 | Anesthesiology Progress Note ---
Date of Service April 02, 2025 Anesthesia Post Procedure Vital Signs Vital Signs: Temp Pulse Pulse Resp BP Pulse Ox O2 Del Method 04/02/25 14:41 101 H 16 113/86 97 Room Air 04/02/25 14:26 101 H 20 110/78 98 Room Air 04/02/25 14:17 96 H 04/02/25 14:11 125 H 20 102/69 95 Room Air 04/02/25 13:27 36.1 C L 119 H 16 128/107 H 96 Room Air 04/02/25 11:20 36.3 C L 102 H 19 127/84 97 Room Air 04/02/25 08:00 92 H 04/02/25 07:34 37.2 C 94 H 19 114/80 97 Room Air 04/02/25 02:44 36.8 C 117 H 17 123/91 98 Room Air 04/01/25 22:54 36.6 C 96 H 17 122/83 98 Room Air 04/01/25 22:29 96 H 04/01/25 19:42 36.9 C 119 H 18 123/91 97 Room Air 04/01/25 15:44 97 H 04/01/25 15:25 36.5 C 87 16 118/68 98 Room Air Pain Intensity Chest: Pain Intensity: 9 Medial Abdomen: Pain Intensity: 5 Transfer of Care Handoff Completed per policy Notes Mental Status: alert / awake / arousable and participated in evaluation Patient Amnestic to Procedure: Yes Nausea / Vomiting: adequately controlled Pain: adequately controlled Airway Patency, RR, SpO2: stable & adequate BP & HR: stable & adequate Hydration State: stable & adequate Anesthetic Complications: no major complications apparent and Pt Satisfied with anesthetic care
[2025-04-02] MEDS: LIDOCAINE 2% 2 ML VIAL/AMP(20MG/ML) INFIL ONE (15:09)
[2025-04-02] MEDS: PROPOFOL IV EMULSION 10 MG/ML 20 ML VIAL IV ONE (15:09)
[2025-04-02] MEDS: SUCRALFATE 1 GM/10 ML UDC PO SCH (15:50)
[2025-04-02] MEDS: POTASSIUM PHOS 3 MMOL/1 ML INFUSION IV STA (22:57)
[2025-04-03 05:53] LABS: Hematocrit (blood only) 39.2 % (37.0-47.0); Hemoglobin 14.1 g/dl (12.0-16.0); Mean Corpuscular Hemoglobin 32.8 pg (25.0-34.0); Mean Corpuscular Volume 91.2 fL (80.0-100.0); Platelet Count 308 K/uL (130-400); RDW Standard Deviation 40.2 fL (36.4-46.3); Red Blood Count 4.30 M/uL (4.20-5.40); White Blood Count 11.82 K/ul (4.8-10.8)
[2025-04-03 06:12] LABS: Anion Gap 8.0 (3-11); Blood Urea Nitrogen 10.0 mg/dl (6-23); Calcium 8.1 mg/dl (8.6-10.3); Carbon Dioxide 26.0 mmol/L (21-32); Chloride 101.0 mmol/L (98-107); Creatinine Clr Calc Pharmacy 81.8 ml/min; Glucose 141.0 mg/dl (70-99(Fasting)); Magnesium 1.8 mg/dl (1.7-2.4); Potassium 3.0 mmol/L (3.5-5.1); Sodium 135.0 mmol/L (136-145)
[2025-04-03] MEDS ORDERED: POTASSIUM PHOS 3 MMOL/1 ML INFUSION IV STA (07:50)
[2025-04-03] MEDS: POTASSIUM CHLORIDE CRTAB 20 MEQ TABCR PO STA ×2 (08:17→12:40)
[2025-04-03] MEDS: POTASSIUM PHOSPHATE 6 MMOL in SODIUM CHLORIDE 0.9% 250 ML IV ONE (08:45)
--- NOTE | 2025-04-03 11:49 | Hospitalist Progress Note ---
Date of Service April 03, 2025 Assessment & Plan (1) Elevated lactic acid level: Plan: 60-year-old female with past medical history significant for dyslipidemia, female stress incontinence, history of myalgia and myositis, migraines, trigeminal neuralgia, coccydynia, anxiety state, history of squamous cell carcinoma in situ, medical marijuana use and on indomethacin for about a year for headaches follows with neurology and positive JAKE and following with rheu matology comes because of nausea, vomiting and diarrhea. Patient says the day before she was feeling weak and tired and slept a lot and in the nighttime she started develop diarrhea several episodes and since yesterday morning she is having a lot of nausea with vomiting multiple times and also epigastric abdominal pain and came to the ER. Denies any blood in the vomitus or blood in the stools or any black stools. Denies any fevers. No headache. No dizziness. Vision is okay. No runny nose or sore throat. No cough. No chest pain. No shortness of breath. No rash. Hemodynamics are okay. Elevated lactic acid level and leukocytosis Initial level is 3.2 repeat is 3.5 and again repeat is 3.2 Received liter of fluid in the ER CT abdomen pelvis with IV contrast no acute findings. UA is okay Having nausea vomiting and diarrhea and epigastric pain Will follow stool studies -> pt had no stool since admission , stool pcr ordered Antiemetics as needed Empiric IV Cipro and Flagyl and fluids iv ppi Follow blood cultures - no growth in 24 hrs Follow repeat labs If not improving will consult GI Close monitor 04/01/25 WBC down to 19K from 24K Lactate now normal at 1.6 Pt received IVF, IV antibiotics Reports she has burning in esophagus w/ clear liquids, feels food getting stuck, and has to spit up just with clear liquids, + epigastric pain Will consult w/ GI 04/02 WBC down to 14K Overall she feel symptoms not improved GI consulted and plan for EGD today EGD - revealed findings of esophagitis and gastritis. Biopsies pending. Would recommend ongoing treatment with PPI tapered to control symptoms. Would recommend avoidance of NSAIDs, alcohol and tobacco products. F/U with PCP for ongoing monitoring. May f/u wth GI as outpatient with any concerns or ongoing symptoms. 04/03 WBC down to 11.8K Still w/ nausea but overall improved, will advance diet Headaches Arthritis Holding the indomethacin IV Tylenol as needed for now Fibromyalgia On Cymbalta GERD Currently placed on IV Protonix Hold omeprazole Hyperlipidemia On statin Anxiety On Ativan as needed Positive JAKE Following with rheumatology DVT prophylaxis Lovenox Disposition Telemetry Full code. Admission and Anticipated Discharge Date Admission Date: March 31, 2025 Subjective Pt seen in follow up of nausea, vomiting, diarrhea Pt did not have any BM since being admitted, she is passing flatus Reports epigastric pain, burning in esophagus, food feeling stuck, and need to spit up even with just clear liquids -> GI consulted - s/p EGD showing gastritis, duodenitis WBC down to 11.8K today no chest pain, shortness of breath, no fever, chills Review of Systems Review of Systems: All systems reviewed & are unremarkable except as noted in Subjective Physical Exam Physical Exam: General- WD/WN F in NAD Head- atraumatic Eyes- PERRL. Neck- supple, no JVD. Lungs- clear to auscultation no wheezing or crackles Heart- regular rate and rhythm; no murmur Abdomen- normal bowel sounds, soft, + epigastric tenderness present Extremities- no pretibial edema, no erythema seen. Neuro- alert, oriented PERRL, no facial palsy; no dysarthria; moves extremities Results & Data Results & Data Vital Signs (Past 12 Hours) Vital Signs Temp Pulse Pulse Resp BP Pulse Ox O2 Del Method 04/03/25 11:12 37.0 C 102 H 19 132/88 100 Room Air 04/03/25 07:29 37.0 C 108 H 19 120/83 98 Room Air 04/03/25 07:00 114 H 04/03/25 03:13 37.0 C 95 H 18 125/90 97 Room Air Laboratory Results 04/03/25 Range/Units 05:17 WBC 11.82 H (4.8-10.8) K/ul RBC 4.30 (4.20-5.40) M/uL Hgb 14.1 (12.0-16.0) g/dl Hct 39.2 (37.0-47.0) % MCV 91.2 (80.0-100.0) fL MCH 32.8 (25.0-34.0) pg MCHC 36.0 (32.0-36.0) g/dL RDW Std Deviation 40.2 (36.4-46.3) fL RDW Coeff of Ray 12.1 (11.5-14.5) % Plt Count 308 (130-400) K/uL MPV 8.9 L (9.4-12.4) fL Sodium 135 L (136-145) mmol/L Potassium 3.0 L (3.5-5.1) mmol/L Chloride 101 (98-107) mmol/L Carbon Dioxide 26 (21-32) mmol/L Anion Gap 8 (3-11) BUN 10 (6-23) mg/dl Creatinine 0.62 (0.6-1.2) mg/dl Est Cr Clr Drug Dosing 81.8 ml/min eGFR 103.16 BUN/Creatinine Ratio 16.1 (10-20) Glucose 141 H (70-99(Fasting)) mg/dl Calcium 8.1 L (8.6-10.3) mg/dl Phosphorus 2.2 L (2.5-4.9) mg/dl Magnesium 1.8 (1.7-2.4) mg/dl Medications Administered Current Inpatient Medications Acetaminophen (Acetaminophen 325 Mg Tab) 650 mg PO Q4H PRN PRN Reason: Pain or Fever Stop: 04/30/25 09:40 Last Admin: 04/03/25 08:17 Dose: 650 mg Albuterol (Albuterol Hfa 8 Gm Inhaler) 1 puffs INH Q4H PRN PRN Reason: Shortness Of Breath Or Wheezin Stop: 04/30/25 02:16 Alprazolam (Alprazolam 0.5 Mg Tablet) 0.5 mg PO DAILY PRN PRN Reason: anxiety Stop: 04/30/25 02:16 Last Admin: 04/02/25 19:52 Dose: 0.5 mg Duloxetine HCl (Duloxetine Hcl 60 Mg Cap) 60 mg PO QAM GEORGE Stop: 04/30/25 08:59 Last Admin: 04/03/25 08:17 Dose: 60 mg Enoxaparin Sodium (Enoxaparin Inj 40 Mg/0.4 Ml Syr) 40 mg SQ Q24H GEORGE Stop: 04/30/25 08:59 Last Admin: 03/31/25 09:25 Dose: Not Given Fluticasone Propionate (Fluticasone Propionate Na Spr 16 Gm Btl) 1 sprays NA DAILY GEORGE Stop: 04/30/25 08:59 Last Admin: 04/03/25 08:18 Dose: 1 sprays Pantoprazole Sodium (Protonix) 40 mg in 10 mls @ 5 mls/min IV BID GEORGE Stop: 04/30/25 08:59 Last Admin: 04/03/25 08:18 Dose: 5 mls/min Ciprofloxacin (Cipro / D5w) 400 mg in 200 mls @ 100 mls/hr IV Q12H GEORGE; Prot ocol Stop: 04/10/25 03:59 Last Infusion: 04/03/25 05:23 Dose: Infused Metronidazole (Flagyl) 500 mg in 100 mls @ 100 mls/hr IV Q8H GEORGE; Protocol Stop: 04/10/25 02:59 Last Admin: 04/03/25 11:26 Dose: 100 mls/hr Promethazine HCl (Phenergan) 12.5 mg in 50.5 mls @ 202 mls/hr IV Q6H PRN PRN Reason: Nausea And Vomiting Stop: 04/30/25 02:32 Last Infusion: 04/03/25 09:03 Dose: Infused Magnesium Sulfate/Dextrose (Magnesium Sulfate / D5w) 1 gm in 100 mls @ 50 mls/hr IV ONE ONE Stop: 04/03/25 13:46 Nitroglycerin (Nitroglycerin Sl 0.4 Mg/Tab Tab) 0.4 mg SL Q5M PRN PRN Reason: Chest Pain Stop: 04/30/25 02:16 Potassium Chloride (Potassium Chloride Crtab 20 Meq Tabcr) 20 meq PO NOW STA Stop: 04/03/25 11:48 Rosuvastatin Calcium (Rosuvastatin Calcium 10 Mg Tab) 10 mg PO DAILY [facility] Stop: 04/30/25 08:59 Last Admin: 04/03/25 08:17 Dose: 10 mg Sucralfate (Sucralfate 1 Gm/10 Ml Udc) 1 gm PO ACHS GEORGE Stop: 05/02/25 16:29 Last Admin: 04/03/25 11:26 Dose: 1 gm
[2025-04-03] MEDS: MAGNESIUM SULFATE / D5W 1 GM/100 ML BAG IV ONE (12:39)
[2025-04-03] MEDS: SODIUM CHLORIDE 0.9% 1,000 ML IV STA (14:54)
[2025-04-04 05:42] LABS: Hematocrit (blood only) 34.6 % (37.0-47.0); Hemoglobin 11.9 g/dl (12.0-16.0); Mean Corpuscular Hemoglobin 32.2 pg (25.0-34.0); Mean Corpuscular Volume 93.8 fL (80.0-100.0); Platelet Count 262 K/uL (130-400); RDW Standard Deviation 42.0 fL (36.4-46.3); Red Blood Count 3.69 M/uL (4.20-5.40); White Blood Count 7.86 K/ul (4.8-10.8)
[2025-04-04 05:59] LABS: Anion Gap 4.0 (3-11); Blood Urea Nitrogen 14.0 mg/dl (6-23); Calcium 7.8 mg/dl (8.6-10.3); Carbon Dioxide 27.0 mmol/L (21-32); Chloride 108.0 mmol/L (98-107); Creatinine Clr Calc Pharmacy 71.4 ml/min; Glucose 103.0 mg/dl (70-99(Fasting)); Magnesium 2.0 mg/dl (1.7-2.4); Potassium 3.8 mmol/L (3.5-5.1); Sodium 139.0 mmol/L (136-145)
--- NOTE | 2025-04-04 07:00 | Gastroenterology Progress Note ---
Date of Service April 04, 2025 Assessment & Plan (1) Nausea and vomiting: Plan: Clinically resolved. Suspect self-limited gastroenteritis. Biopsies from endoscopy still pending. Okay for discharge from GI standpoint. Continue with PPI. She can follow-up with our GI group as an outpatient. Admission and Anticipated Discharge Date Admission Date: March 31, 2025 Subjective Feeling much better GI symptoms have resolved. No vomiting no diarrhea. Physical Exam Physical Exam: No acute distress Respiratory rate regular Cardiac rhythm regular Abdomen soft nontender Results & Data Results & Data Vital Signs (Past 12 Hours) Vital Signs Temp Pulse Pulse Resp BP Pulse Ox O2 Del Method 04/04/25 03:02 36.8 C 93 H 16 95/62 L 98 Room Air 04/03/25 22:50 37.1 C 86 18 84/55 L 96 Room Air 04/03/25 22:32 82 04/03/25 19:15 37.3 C 99 H 18 90/57 L 98 Room Air PG Care Time/CCT Total # of Minutes Spent Total Time Spent with Patient: Total time spent is greater than 50% in coordination of care (as documented) at patient's floor/unit and/or counseling patient: Coding Level of Care Code 77986 SUB INP/OBS CARE 2/35MIN Diagnoses Nausea and vomiting R11.2
--- NOTE | 2025-04-04 10:47 | Discharge Summary ---
Date of Service April 04, 2025 Admission HPI Per Admitting Provider 60-year-old female with past medical history significant for dyslipidemia, female stress incontinence, history of myalgia and myositis, migraines, trigeminal neuralgia, coccydynia, anxiety state, history of squamous cell carcinoma in situ, medical marijuana use and on indomethacin for about a year for headaches follows with neurology and positive JAKE and following with rheumatology comes because of nausea, vomiting and diarrhea. Patient says the day before she was feeling weak and tired and slept a lot and in the nighttime she started develop diarrhea several episodes and since yesterday morning she is having a lot of nausea with vomiting multiple times and also epigastric abdominal pain and came to the ER. Denies any blood in the vomitus or blood in the stools or any black stools. Denies any fevers. No headache. No dizziness. Vision is okay. No runny nose or sore throat. No cough. No chest pain. No shortness of breath. No rash. Hemodynamics are okay. Past medical history. As mentioned above Past surgical history. . Colonoscopy, EGD. Nasal polypectomy. Laser surgery of cervix. Ligation of oviducts. Neck spine fusion surgery. Tonsillectomy and adenoidectomy. Vaginal hysterectomy. Social history. . CBD vape pen. Alcohol occasional. Medical marijuana. Family history. Paternal aunt had multiple myeloma. Maternal aunt had breast cancer at age 42. Maternal grandmother had colon cancer at age of 40. Son has type 1 diabetes. Mother has hypertension. Father has hypertension. Admission Exam Per Admitting Provider General- Not in distress Head- atraumatic Eyes- PERRL. ENT- oropharynx clear Neck- supple, no JVD. Lungs- clear to auscultation no wheezing or crackles Heart- regular rate and rhythm; no murmur, no gallop. Abdomen- normal bowel sounds, soft, epigastric tenderness present, no guarding, no distension Extremities- no pretibial edema, no erythema seen. Neuro- alert, oriented PERRL, no facial palsy; no dysarthria; moves extremities Principal Diagnosis Gastroenteritis, dehydration, leukocytosis, elevated lactate, gastritis, esophagitis Discharge Exam General- WD/WN F in NAD Head- atraumatic Eyes- PERRL. Neck- supple, no JVD. Lungs- clear to auscultation no wheezing or crackles Heart- regular rate and rhythm; no murmur Abdomen- normal bowel sounds, soft, + minimal epigastric tenderness much improved Extremities- no pretibial edema, no erythema seen. Neuro- alert, oriented PERRL, no facial palsy; no dysarthria; moves extremities Discharge Data Allergies Allergy/AdvReac Type Severity Reaction Status Date / Time Penicillins Allergy Mild Rash/hives/throat Verified 03/30/25 20:08 swelling latex Allergy Unknown SCABS, Verified 03/30/25 20:08 ITCHY, SORE walnut Allergy swelling Verified 03/30/25 20:08 in throat baclofen AdvReac Severe Confusion Verified 03/30/25 20:08 bacitracin AdvReac Intermediate blisters Verified 03/30/25 20:08 onabotulinumtoxinA AdvReac muscle Verified 03/30/25 20:08 [From Botox] tightness in neck COVALT Allergy Unknown . Uncoded 03/30/25 20:08 Consultations 03/30/25 23:12 ED Decision to Admit Stat 04/01/25 10:03 Consult Gastroenterology Routine Procedures Performed Operation Date: 04/02/25 17:10 Actual Procedures p EGD Biopsy Cytology - Sam Barker MD Ordered Studies 03/30/25 20:22 CT Abd and Pelvis [CT abd pelvis IV con only] Stat FINDINGS: Lung bases: Unremarkable. No mass. No consolidation. ABDOMEN: Liver: Unremarkable. No mass. Gallbladder and bile ducts: Postop changes prior cholecystectomy. No ductal dilation. Pancreas: Unremarkable. No mass. No ductal dilation. Spleen: Unremarkable. No splenomegaly. Adrenals: Unremarkable. No mass. Kidneys and ureters: Both kidneys opacify within excrete contrast in a normal symmetric fashion. Simple bilateral parapelvic renal cysts. No follow-up of these simple cysts is necessary. No hydronephrosis. Stomach and bowel: Unremarkable. No obstruction. No mucosal thickening. PELVIS: Appendix: No findings to suggest acute appendicitis. Bladder: Unremarkable. No mass. Reproductive: Unremarkable as visualized. ABDOMEN and PELVIS: Intraperitoneal space: Unremarkable. No free air. No significant fluid collection. Bones/joints: No acute fracture. No dislocation. Soft tissues: Unremarkable. Vasculature: Unremarkable. No abdominal aortic aneurysm. Lymph nodes: Unremarkable. No enlarged lymph nodes. IMPRESSION: Postop changes prior cholecystectomy Stable bilateral parapelvic renal cysts Hospital Course (1) Elevated lactic acid level: 60-year-old female with past medical history significant for dyslipidemia, female stress incontinence, history of myalgia and myositis, migraines, trigeminal neuralgia, coccydynia, anxiety state, history of squamous cell carcinoma in situ, medical marijuana use and on indomethacin for about a year for headaches follows with neurology and positive JAKE and following with rheumatology comes because of nausea, vomiting and diarrhea. Patient says the day before she was feeling weak and tired and slept a lot and in the nighttime she started develop diarrhea several episodes and since yesterday morning she is having a lot of nausea with vomiting multiple times and also epigastric abdominal pain and came to the ER. Denies any blood in the vomitus or blood in the stools or any black stools. Denies any fevers. No headache. No dizziness. Vision is okay. No runny nose or sore throat. No cough. No chest pain. No shortness of breath. No rash. Hemodynamics are okay. Elevated lactic acid level and leukocytosis Initial level is 3.2 repeat is 3.5 and again repeat is 3.2 --> then down to 1.6 Received liter of fluid in the ER CT abdomen pelvis with IV contrast no acute findings. UA is okay Having nausea vomiting and diarrhea and epigastric pain Will follow stool studies -> pt had no stool since admission , stool pcr ordered Antiemetics as needed Empiric IV Cipro and Flagyl and fluids iv ppi Follow blood cultures - no growth in 48 hrs Follow repeat labs If not improving will consult GI Close monitor 04/01/25 WBC down to 19K from 24K Lactate now normal at 1.6 Pt received IVF, IV antibiotics Reports she has burning in esophagus w/ clear liquids, feels food getting stuck, and has to spit up just with clear liquids, + epigastric pain Will consult w/ GI 04/02 WBC down to 14K Overall she feel symptoms not improved GI consulted and plan for EGD today EGD - revealed findings of esophagitis and gastritis. Biopsies pending. Would recommend ongoing treatment with PPI tapered to control symptoms. Would recommend avoidance of NSAIDs, alcohol and tobacco products. F/U with PCP for ongoing monitoring. May f/u with GI as outpatient with any concerns or ongoing symptoms. 04/03 WBC down to 11.8K Still w/ nausea but overall improved, will advance diet 04/04 WBC normalized, pt is feeling well, tolerating diet Headaches Arthritis Holding the indomethacin Tylenol as needed Fibromyalgia On Cymbalta GERD placed on IV Protonix -> PO pantoprazole BID Hold omeprazole Hyperlipidemia On statin Anxiety On Ativan as needed Positive JAKE Following with rheumatology Total Time Total Time Spent Total Time Spent (In Minutes): 40 Discharge Plan Discharge Items Patient Disposition: Home - Self-Care Reason For Visit: N/V AND DIARRHEA, ELEVATED LACTIC ACID Discharge Diagnosis: Gastroenteritis, dehydration, leukocytosis, elevated lactate, gastritis, esophagitis Condition on Discharge: Fair Activity: Per Instructions section Non-emergency contact: Primary Care Provider and Beauty Shop Manager Call non-emergency contact if: you have any medication questions and your symptoms worsen Follow-up/Referrals: Keli Stahl PA-C [Primary Care Provider] - (Date & Time 04/07/2025 11:20 AM Provider: Subhash Best MD [facility] ) Diet: Regular Diet Comment: Avoid caffeine, alcohol and acidic foods/ juices. Addtl Attending Provider Instructions: Follow up with your primary care doctor within 1 week. The appointment was scheduled for you for April 07, 2025. Make sure to stay well hydrated. Avoid NSAIDs such ibuprofen, advil, mortrin. Try to decrease or stop using indomethacin. Discuss this with your primary care doctor. Avoid caffeine, alcohol and acidic foods/ juices. Take pantoprazole twice a day (instead of omeprazole). Take sucralfate as prescribed / before meals. Pending Studies at Discharge: Yes Studies:: final results of blood cultx Stand-Alone Forms: My [facility] [employer], Smoking Cessation Medications and DC Order Prescriptions: New ondansetron 4 mg tablet,disintegrating 4 mg PO Q6H PRN (Reason: nausea and vomiting) Qty: 14 0RF sucralfate 100 mg/mL Suspension 1 g PO ACHS Qty: 300 0RF pantoprazole 40 mg tablet,delayed release (DR/EC) 40 mg PO BID Qty: 60 0RF Continued acetaminophen [Tylenol Arthritis Pain] 650 mg tablet extended release 650 mg PO Q8H PRN (Reason: Pain) docusate sodium [Colace] 100 mg capsule 100 mg PO BID alprazolam 0.5 mg tablet 0.5 mg PO DAILY PRN (Reason: anxiety) Qty: 90 1RF ketorolac 10 mg tablet 10 mg PO DAILY PRN (Reason: Pain) 30 Days Qty: 12 5RF Hold Instructions: on indomethacin rosuvastatin 10 mg tablet 10 mg PO DAILY furosemide [Lasix] 40 mg tablet 40 mg PO DAILY PRN (Reason: swelling) ondansetron HCl 4 mg tablet 4 mg PO Q8H PRN (Reason: Nausea) valacyclovir [Valtrex] 500 mg Tablet 500 mg PO TID PRN (Reason: Recurrent Episode) acyclovir 5 % Ointment 1 applic Topical DIRECTED famotidine 20 mg tablet 20 mg PO DAILY albuterol sulfate 90 mcg/actuation HFA aerosol inhaler 1 puff INHALATION Q4H PRN (Reason: Shortness Of Breath Or Wheezing) fluticasone propionate 50 mcg/actuation spray,suspension 1 spray INTRANASAL DAILY duloxetine [Cymbalta] 60 mg capsule,delayed release(DR/EC) 60 mg PO QAM Held indomethacin 75 mg capsule, extended release 75 mg PO BID 90 Days Qty: 180 4RF Hold Instructions: Resume on 04/07/25. Discuss with your doctor if/ when to resume this med Discontinued omeprazole 40 mg capsule,delayed release(DR/EC) 40 mg PO QAM Discharge Orders: Discharge Order (Routine); Ordered 04/04/25 Ordered By: David Petersen Admission Data Admit Date/Time: 03/31/25 01:32 Attending Provider: David Petersen Admit Provider: Adam Hamilton Primary Care Provider: Keli Stahl Other Providers: Adam Hamilton; Elier Calix; Sam Barker I Other Interventions: Discharge Summary Assessment (RN) Last Done: 04/02/25 14:41
--- NOTE | 2025-04-06 08:24 | Coding Query ---
CODING QUERY To promote full compliance with coding requirements relating to patient care, provider participation is requested in all cases of telescope maintenance uncertainty. Please assist us with the question(s) below: Coding Question(s): The following documentation is present in the communication report from 03/31/25 "Gastroenteritis bacterial versus viral." (...) "SIRS of non- infectious origin w/o acute organ dysfunction" Can you please specify the type of gastroenteritis, if known, by placing an 'x' in the parenthesis below? Bacterial gastroenteritis ( ) Viral gastroenteritis ( ) Gastroenteritis unspecified (x ) Other, please specify ( ) Also, can you please clarify the status of "SIRS of non-infectious origin w/o acute organ dysfunction" Diagnosed and POA (x ) Diagnosed and not POA ( ) Ruled Out ( ) Other, please specify ( ) Physician's Response(s): Thank you Jory Hayes Principal Diagnosis: "that condition established after study, to be chiefly responsible for occasioning the admission of the patient to the hospital for care." Co-Existing Principal Diagnosis: "when two or more diagnoses equally meet the criteria for principal diagnosis as determined by the circumstances of admission, diagnostic work up, and/or therapy provided, and the Alphabetic Index, Tabular List, or another coding guideline does not provide sequencing direction, any one of the diagnoses may be sequenced first." "When the physician has documented what appears to be a current diagnosis in the body of the record, but has not included the diagnosis in the final diagnostic statement, the physician should be asked whether the diagnosis should be added." (Source Coding [facility] 2 QTR90. p3-4) NASH
== END 2025-04-04 11:46 | disposition home or self-care (01) | DRG 392 ==
LOC: ED 19:26 → INTOOBSV 03-31 01:32 → OBSVTOIN 03-31 01:32 → 4W 03-31 01:32 → SUATTDRO 03-31 01:32 → 4W 03-31 02:06